=== PATIENT | male | born 1960 | race Caucasian/White ===

== ENCOUNTER → 2017-10-28 09:12 | Outpatient (CLI) | payer MEDICARE, SELFPAY ==
--- NOTE | 2017-10-28 10:00 | MRI_ITS ---
STUDY: MRI BRAIN WITH AND WITHOUT CONTRAST (ATTENTION INTERNAL AUDITORY CANALS - I.A.C.'s) REASON FOR EXAM: Male, 57 years old. Hearing asymmetry.Left ear hearing loss and sound of crickets x 6 months. History of seizures. TECHNIQUE: Standardized multiplanar fat and water weighted pulse sequences were obtained. 7 ml of Gadavist contrast material was administered intravenously for the contrast portion of the examination. COMPARISON: None. FINDINGS: Normal bilateral temporal bones. Normal bilateral internal auditory canals. There is no demonstrated intracanalicular or cisternal vestibular schwannoma (acoustic neuroma). There is no enhancement of the bilateral VIIth or VIIIth cranial nerves. Normal bilateral cochlea, vestibules and semicircular canals. There is mild cerebral atrophy with widening of the extra-axial spaces and ventricular dilatation. Normal white matter tracts of the supratentorial brain. Normal bilateral basal ganglia. Normal thalami. Normal flow voids within the major intracranial circulation suggesting patency by spin echo criteria. Normal venous enhancement. There is no enhancing intra-axial or extra-axial abnormality. There is no extra-axial fluid accumulation. Normal sella turcica, pituitary gland, infundibular stalk, optic chiasm and hypothalamus. Normal tectal plate and pineal gland. There is a blush of enhancement involving the inferior josh with minimal increased FLAIR signal. Normal cerebellum. Normal basal cisterns. No demonstrated orbital abnormality, within the constraints of a routine brain study. Normal visualized paranasal sinuses. Normal calvarium and skull base. Normal visualized soft tissue structures. Normal visualized upper cervical spine. Enhancement of the josh. Differential considerations are cavernous angioma and low-grade neoplastic disease. Follow-up in 3 months can be obtained. MRI/Brain W/WO Contrast IMPRESSION: There is no demonstrated intracanalicular or cisternal vestibular schwannoma (acoustic neuroma). Enhancement of the josh. Differential considerations are cavernous angioma, demyelination and low-grade neoplastic disease. Follow-up in 3 months can be obtained. Electronically Signed: Vicky Curry MD at 15:53 EST Tel , Service support ,
== END ==
PROVIDERS: Family Provider Family Medicine; PCP Family Medicine; Visit Provider Otolaryngology
DX: H90.3 Sensorineural hearing loss, bilateral (principal); H61.22 Impacted cerumen, left ear
CPT/HCPCS: 70553; A9585

== ENCOUNTER → 2017-12-30 17:26 | Outpatient (CLI) | payer MEDICARE, SELFPAY ==
[2017-12-30 18:10] LABS: ALB/GLOB Ratio 1.6 RATIO (0.9-2.4); AST(SGOT) 7 U/L (15-37); Alanine Aminotransfer ALT/SGPT 25 U/L (16-61); Albumin, Serum 4.1 g/dL (3.2-5.0); Alkaline Phosphatase 67 U/L (45-117); Anion Gap 5 (5-15); BUN 23 mg/dL (7-18); Calcium,Total 8.9 mg/dL (8.5-10.1); Chloride 98 mmol/L (98-107); Creatinine, Serum 1.28 mg/dL (0.70-1.30); EST Glomerular Filtration Rate 61 mL/min (>60); Est Glom Filt Rate - Afr Amer 74 mL/min (>60); Globulin 2.6 g/dL (2.2-4.2); Glucose 363 mg/dL (74-106); Potassium 4.8 mmol/L (3.5-5.1); Protein, Total 6.7 g/dL (6.4-8.2); Sodium Level 136 mmol/L (136-145)
[2017-12-30 18:18] LABS: Hemoglobin A1c 11.7 % (4.2-6.3)
== END ==
PROVIDERS: Family Provider Family Medicine; PCP Family Medicine; Visit Provider Nurse Practitioner
DX: E10.49 Type 1 diabetes mellitus with other diabetic neurological complication (principal); E10.65 Type 1 diabetes mellitus with hyperglycemia
CPT/HCPCS: 80053; 83036

== ENCOUNTER → 2018-03-03 13:16 | Outpatient (CLI) | payer MEDICARE, SELFPAY ==
--- NOTE | 2018-03-03 13:26 | MRI_ITS ---
STUDY: MRI BRAIN WITH AND WITHOUT CONTRAST REASON FOR EXAM: Male, 57 years old. Abnormal enhancement of the josh, persistent dizziness and imbalance TECHNIQUE: Standardized multiplanar fat and water weighted pulse sequences were obtained. 8 ml of Gadavist contrast material was administered intravenously for the contrast portion of the examination. COMPARISON: None. FINDINGS: Stable cortical atrophy. Normal white matter tracts of the supratentorial brain. Normal bilateral basal ganglia. Normal thalami. There is no extra-axial fluid accumulation. Normal flow voids within the major intracranial circulation suggesting patency by spin echo criteria. Normal venous enhancement. There is no enhancing intra-axial or extra-axial abnormality. Normal sella turcica, pituitary gland, infundibular stalk, optic chiasm and hypothalamus. Normal tectal plate and pineal gland. Once again, a faint region of postcontrast enhancement is noted in the ventral josh, measuring 12 mm anteroposterior by 9 mm transverse. This finding is unchanged compared to previous study. Of note, it is not associated with restricted diffusion, hemorrhage or mass effect. This region is faintly T2 hyperintense. 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 Stable cerebellar atrophy. Normal basal cisterns. Normal bilateral temporal bones. Normal bilateral internal auditory canals. No demonstrated orbital abnormality, within the constraints of a routine brain study. Normal visualized paranasal sinuses. Mild bilateral mastoid sinus disease. Normal visualized soft tissue structures. Normal visualized upper cervical spine. MRI/Brain W/WO Contrast IMPRESSION: Stable faint region of enhancement in the ventral josh. 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 No new intra-axial lesions are seen. Electronically Signed: [place] MD at 1:57 EDT Tel , Service support ,
== END ==
PROVIDERS: Family Provider Family Medicine; PCP Family Medicine; Visit Provider Nurse Practitioner Acute Care
DX: D49.9 Neoplasm of unspecified behavior of unspecified site (principal)
CPT/HCPCS: 70553; A9585

== ENCOUNTER → 2018-06-01 16:41 | Outpatient (CLI) | payer MEDICARE, SELFPAY ==
[2018-06-01 18:00] LABS: Hemoglobin A1c 10.2 % (4.2-6.3)
[2018-06-01 18:32] LABS: Microalbumin,Random Urine 37.4 mg/L (NO RANGE EST.); Microalbumin:Creatinine Ratio 61.9 mg/g CRE (<30 mg/g CRE)
[2018-06-01 20:40] LABS: ALB/GLOB Ratio 1.4 RATIO (0.9-2.4); AST(SGOT) 14 U/L (15-37); Alanine Aminotransfer ALT/SGPT 39 U/L (16-61); Albumin, Serum 3.9 g/dL (3.2-5.0); Alkaline Phosphatase 127 U/L (45-117); Anion Gap 11 (5-15); BUN 28 mg/dL (7-18); BUN/Creat Ratio 20.9 RATIO (10-20); Calcium,Total 8.9 mg/dL (8.5-10.1); Chloride 95 mmol/L (98-107); Creatinine, Serum 1.34 mg/dL (0.70-1.30); EST Glomerular Filtration Rate 58 mL/min (>60); Est Glom Filt Rate - Afr Amer 70 mL/min (>60); Globulin 2.8 g/dL (2.2-4.2); Glucose 547 mg/dL (74-106); Potassium 4.9 mmol/L (3.5-5.1); Protein, Total 6.7 g/dL (6.4-8.2); Sodium Level 136 mmol/L (136-145)
== END ==
PROVIDERS: Visit Provider Nurse Practitioner
DX: E10.65 Type 1 diabetes mellitus with hyperglycemia (principal); E10.49 Type 1 diabetes mellitus with other diabetic neurological complication
CPT/HCPCS: 36415; 80053; 82043; 82570; 83036

== ENCOUNTER → 2018-06-12 15:54 | Outpatient (CLI) | payer MEDICARE, SELFPAY ==
[2018-06-12 17:00] LABS: Hematocrit 37.2 % (40-54); Hemoglobin 12.8 g/dl (13.0-16.5); Mean Corp Hgb Conc 34.4 g/gl (32-36); Mean Corpuscular Hgb 31.4 pg (27.0-32.0); Mean Corpuscular Volume 91.2 fL (80-94); Mean Platelet Vol. 10.7 fl (6.2-12.0); Platelet Count 164 K/mm3 (150-450); RBC Distribution Width SD 39.2 fl (35.1-43.9); Red Blood Count 4.08 M/mm3 (4.6-6.2); White Blood Count 5.3 K/mm3 (4.4-11.0)
[2018-06-12 17:01] LABS: Scan Indicated on CBC? Y/N NO
[2018-06-12 17:45] LABS: Vitamin B12 632 pg/mL (211-911)
[2018-06-12 17:46] LABS: Valproic Acid (Depakene) Level 78 ug/mL (50-100)
[2018-06-12 18:04] LABS: ALB/GLOB Ratio 1.5 RATIO (0.9-2.4); AST(SGOT) 15 U/L (15-37); Alanine Aminotransfer ALT/SGPT 27 U/L (16-61); Albumin, Serum 3.8 g/dL (3.2-5.0); Alkaline Phosphatase 101 U/L (45-117); Anion Gap 8 (5-15); BUN 25 mg/dL (7-18); BUN/Creat Ratio 25.4 RATIO (10-20); Calcium,Total 8.9 mg/dL (8.5-10.1); Chloride 99 mmol/L (98-107); Creatinine, Serum 0.99 mg/dL (0.70-1.30); EST Glomerular Filtration Rate 83 mL/min (>60); Est Glom Filt Rate - Afr Amer 100 mL/min (>60); Free T3 2.4 pg/mL (2.18-3.98); Globulin 2.5 g/dL (2.2-4.2); Glucose 269 mg/dL (74-106); Magnesium 2.3 mg/dL (1.6-2.6); Phosphorus 3.5 mg/dL (2.5-4.9); Potassium 4.2 mmol/L (3.5-5.1); Protein, Total 6.3 g/dL (6.4-8.2); Sodium Level 140 mmol/L (136-145); T4 Free Direct 0.62 ng/dL (0.76-1.46); Thyroid Stim Hormone (TSH) 1.48 uIU/mL (0.358-3.74)
[2018-06-16 10:58] LABS: Lamotrigine (Lamictal) Level 2.4 ug/mL (2.0-20.0)
== END ==
PROVIDERS: Visit Provider Nurse Practitioner Acute Care
DX: R56.9 Unspecified convulsions (principal)
CPT/HCPCS: 36415; 80053; 80164; 82542; 82607; 83735; 84100; 84439; 84443; 84481; 85027

== ENCOUNTER → 2018-09-07 07:43 | Outpatient (CLI) | payer MEDICARE, SELFPAY ==
[2018-06-01 15:24] VITALS: BMI 26.3
[2018-09-07 09:40] LABS: Cholesterol 246 mg/dL (200); High Density Lipoprotein 34 mg/dL; Triglycerides 499 mg/dL
--- OUTSIDE RECORDS SUMMARY | 2018-12-09 17:14 | XMS RPT_ITS ---
:1960 Author Organization OHIP Support Name Relationship Address Phone SAILAJA BAXTER Unavailable [address] + [place] [address] D Unavailable Unavailable Unavailable SAILAJA BAXTER Unavailable [address] + [place] [address] D Unavailable Unavailable Unavailable SAILAJA BAXTER Unavailable Unavailable + KATHYA BLAND Unavailable Unavailable Unavailable SAILAJA BAXTER Unavailable [address] + [place] [address] D Unavailable Unavailable Unavailable SAILAJA BAXTER Unavailable [address] + [place] [address] D Unavailable Unavailable Unavailable SAILAJA BAXTER Unavailable [address] + [place] [address] D Unavailable Unavailable Unavailable SAILAJA BAXTER Unavailable Unavailable + OMARI PARSON Unavailable Unavailable Unavailable SAILAJA BAXTER Unavailable Unavailable + OMARI PARSON Unavailable Unavailable Unavailable SAILAJA BAXTER Unavailable [address] + [place] [address] D Unavailable Unavailable Unavailable SAILAJA BAXTER Unavailable [address] + [place] [address] D Unavailable Unavailable Unavailable SAILAJA BAXTER Unavailable Unavailable + CECILIA VERDUZCODA Unavailable Unavailable + SAILAJA BAXTER Unavailable Unavailable + SAILAJA BAXTER Unavailable Unavailable + SAILAJA BAXTER Unavailable Unavailable + SAILAJA BAXTER Unavailable [address] + [place] [address] D Unavailable Unavailable Unavailable COOK, SAILAJA Unavailable [address] + [place] [address] D Unavailable Unavailable Unavailable SAILAJA BAXTER Unavailable [address] + [place] [address] D Unavailable Unavailable Unavailable Care Team Providers Name Role Phone Yaneli Tutu Attending Unavailable Tutu [place] Referring Unavailable Kontak, Rodolfo Primary Care Unavailable Lisa Cobos [employer]INT BU[employer]ER[employer]C Attending Unavailable Kontak, Rodolfo Referring Unavailable ShoLisa matias [employer] BU[employer]C Attending Unavailable Kontak, Rodolfo Primary Care Unavailable ShoLisa matias [employer] Attending Unavailable Kontak, Rodolfo Referring Unavailable Kontak, Rodolfo Primary Care Unavailable ShahbazEden barba [employer] Attending Unavailable ShahbazEden barba [employer] Referring Unavailable Kontak, Rodolfo Primary Care Unavailable ShoLisa matias [employer] Attending Unavailable Kontak, Rodolfo Referring Unavailable Kontak, Rodolfo Primary Care Unavailable Lisa Cobos [employer] Attending Unavailable Lisa Cobos [employer] Referring Unavailable Primay Care Physicia, No Primary Care Unavailable ShahbazEden barba [employer] Attending Unavailable ShahbazEden barba [employer] Referring Unavailable Primay Care Physicia, No Primary Care Unavailable Lisa Cobos [employer] Attending Unavailable Lisa Cobos [employer] Referring Unavailable Primay Care Physicia, No Primary Care Unavailable ShoLisa matias [employer] Attending Unavailable Primay Care Physicia, No Referring Unavailable PROVIDER, UNKNOWN Admitting Unavailable PROVIDER, UNKNOWN Attending Unavailable BABIUCH, ANA Attending Unavailable BABIUCH, ANA Referring Unavailable DEASY, JEANNINE F Attending Unavailable BABIUCH, ANA Referring Unavailable TEJADA, SAUNDRA K Attending Unavailable DEASY, JEANNINE F Attending Unavailable TEJADA, SAUNDRA K Attending Unavailable TEJADA, SAUNDRA K Referring Unavailable DEASY, JEANNINE F Attending Unavailable DEASY, JEANNINE F Referring Unavailable Dr. Víctor Ladd Admitting Unavailable Dr. Víctor Ladd Attending Unavailable DANETTE LENNON Attending Unavailable SYSTEM, PROVIDER NOT IN Primary Care Unavailable DANETTE LENNON Attending Unavailable SYSTEM, PROVIDER NOT IN Primary Care Unavailable CECE REEVES Attending Unavailable TOÑO AGULIERA Primary Care Unavailable TOÑO AGUILERA Attending Unavailable TOÑO AGUILERA Primary Care Unavailable CECE REEVES Attending Unavailable TOÑO AGUILERA Primary Care Unavailable Rodolfo Pemberton Primary Care Unavailable Anjel Tao Admitting Unavailable Anjel Tao Bin Attending Unavailable Rodolfo Pemberton Primary Care Unavailable Daysi Rivas Attending Unavailable Daysi Rivas A Admitting Unavailable Tejada, Saundra K Admitting Unavailable Tejada, Sanudra K Attending Unavailable Rodolfo Pemberton Primary Care Unavailable UNKNOWN Primary Care Unavailable Melissa, Dr. Melara Attending Unavailable Melissa, Dr. Melara Primary Care Unavailable Bernabe, Dr. Doug Diaz Admitting Unavailable Bernabe, Dr. Doug Diaz Attending Unavailable Bernabe, Dr. Doug Diaz Referring Unavailable UNKNOWN Primary Care Unavailable PROBLEMS PROBLEMS DATE TYPE CONDITION / CODE ATTENDING STATUS SOURCE Unknown E10.49 - Type 1 ChantelLisa matias Active [place] 8 diabetes mellitus [employer] Community with other diabetic Hospital neurological Repository complication / E10.49(ICD-10) Admitting Type 2 diabetes [place] [address] diagnosis mellitus with other [facility] [place] specified Repository complication / E11.69(ICD-10) Admitting [facility] (current) [place] [address] diagnosis use of insulin / [facility] [place] Z79.4(ICD-10) Repository Unknown E10.65 - Type 1 Lisa Cobos Active [place] 8 diabetes mellitus [employer] [facility] Community with hyperglycemia / Hospital E10.65(ICD-10) Repository Unknown E11.9 - Type 2 Lisa Cobos Active [place] 8 diabetes mellitus [employer] [facility] Community without complications Hospital / E11.9(ICD-10) Repository Admitting Local infection of [place] [address] diagnosis the skin and [facility] [place] subcutaneous tissue, Repository unspecified / L08.9(ICD-10) Admitting Polyneuropathy, [place] [address] diagnosis unspecified / [facility] [place] G62.9(ICD-10) Repository Admitting Type 1 diabetes [place] [address] diagnosis mellitus with [facility] [place] diabetic Repository polyneuropathy / E10.42(ICD-10) Admitting Fracture of unsp part OchDr. Bharat morgan [place] 8 diagnosis of unsp clavicle, [facility] init for clos fx / Repository S42.009A(ICD-10) Final Fracture of unsp part Dr. Bharat Torres [place] 8 diagnosis of unsp clavicle, [facility] (discharge) init for clos fx / Repository S42.009A(ICD-10) Admitting Disp fx of shaft of Bernabe, Dr. Doug Nicholson [place] 8 diagnosis left clavicle, init [facility] for clos fx / Repository S42.022A(ICD-10) Final Disp fx of shaft of Kidd, Dr. Doug Nicholson [place] 8 diagnosis left clavicle, init [facility] (discharge) for clos fx / Repository S42.022A(ICD-10) Final Traumatic Dr. Doug Kidd [facility] 8 diagnosis hemopneumothorax, [facility] (discharge) initial encounter / Repository S27.2XXA(ICD-10) Final Multiple fractures of Bernabe, Dr. Camacho [facility] 8 diagnosis ribs, right side, [facility] (discharge) init for clos fx / Repository S22.41XA(ICD-10) Final Contusion of lung, Dr. Doug Kidd [place] 8 diagnosis bilateral, initial [facility] (discharge) encounter / Repository S27.322A(ICD-10) Final Fracture of Bernabe, Dr. Camacho [facility] 8 diagnosis manubrium, initial [facility] (discharge) encounter for closed Repository fracture / S22.21XA(ICD-10) Final Pleural effusion, not Dr. oDug Kidd [facility] 8 diagnosis elsewhere classified [facility] (discharge) / J90(ICD-10) Repository Final Atelectasis / Dr. Doug Kidd [facility] 8 diagnosis J98.11(ICD-10) [facility] (discharge) Repository Final Hypo-osmolality and Dr. Doug Kidd [facility] 8 diagnosis hyponatremia / [facility] (discharge) E87.1(ICD-10) Repository Final Acute posthemorrhagic Dr. Doug Kidd [place] 8 diagnosis anemia / D62(ICD-10) [facility] (discharge) Repository Final Fracture of one rib, Dr. 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 Doug Kidd diagnosis hypertension / [facility] (discharge) I10(ICD-10) Repository Final Type [address] Doug Kidd diagnosis mellitus with [facility] (discharge) hyperglycemia / Repository E11.65(ICD-10) Final long term care pharmacist (current) Dr. Doug Kidd diagnosis use of insulin / [facility] (discharge) Z79.4(ICD-10) Repository Final Disp fx of lateral Dr. Doug Kidd diagnosis end of right [facility] (discharge) clavicle, init for Repository clos fx / S42.031A(ICD-10) Final Disp fx of fifth Dr. Doug Kidd diagnosis metatarsal bone, left [facility] (discharge) foot, init / Repository S92.352A(ICD-10) Final Retention of urine, Dr. Doug Kidd diagnosis unspecified / [facility] (discharge) R33.9(ICD-10) Repository Final Other injury of Dr. 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 Doug Kidd diagnosis / E66.9(ICD-10) [facility] (discharge) Repository Final Body mass index (BMI) Dr. Doug Kidd diagnosis 30.0-30.9, adult / [facility] (discharge) Z68.30(ICD-10) Repository Final Epilepsy, unsp, not Dr. Doug Kidd [facility] 8 diagnosis intractable, without [facility] (discharge) status epilepticus / Repository G40.909(ICD-10) Final Hypomagnesemia / Dr. Doug Kidd [facility] 8 diagnosis E83.42(ICD-10) [facility] (discharge) Repository Final Oth disorders of Dr. Doug Kidd [facility] 8 diagnosis electrolyte and fluid [facility] (discharge) balance, NEC / Repository E87.8(ICD-10) Final Hypoxemia / Dr. Doug Kidd [facility] 8 diagnosis R09.02(ICD-10) [facility] (discharge) Repository Final Hypotension, Dr. Doug Kidd [facility] 8 diagnosis unspecified / [facility] (discharge) I95.9(ICD-10) Repository Final Full incontinence of Dr. Doug Kidd [facility] 8 diagnosis feces / R15.9(ICD-10) [facility] (discharge) Repository Final Unspecified urinary Dr. Doug Kidd [facility] 8 diagnosis incontinence / [facility] (discharge) R32(ICD-10) Repository Active Type 2 diabetes ANA SOTO [facility] 7 mellitus with severe [facility] nonproliferative [place] diabetic retinopathy Repository without macular edema, bilateral / E11.3493(ICD-10) Active long term care pharmacist (current) ANA SOTO [facility] 7 use of insulin / [facility] Z79.4(ICD-10) [place] Repository Active Age-related nuclear ANA SOTO [facility] 8 cataract, bilateral / [facility] H25.13(ICD-10) [place] Repository Unknown E10.9 - Type 1 Lisa Cobos Active [place] 8 diabetes mellitus [employer] [facility] Community without complications Hospital / E10.9(ICD-10) Repository Unknown H90.3 - Sensorineural Warann, Active [place] 8 hearing loss, [facility] bilateral / Hospital H90.3(ICD-10) Repository Unknown H61.22 - Impacted Wartmann, Active [place] [facility] cerumen, left ear / [facility] H61.22(ICD-10) Hospital Repository PROCEDURES PROCEDURES DATE CODE DESCRIPTION STATUS SOURCE 01/28/2018 [id number](ICD10- 6N9X79N Completed [facility] Repository 01/28/2018 [id number](ICD10- 9D5X8GZ Completed [facility] Repository 01/28/2018 [id number](ICD10- 8FVP3KW Completed [facility] Repository 01/22/2018 [id number](ICD10- 8LPV68O Completed [facility] Repository 01/22/2018 [id number](ICD10- 4KG382G Completed [facility] Repository RESULTS RESULTS ENDOCRINOLOGY VISIT Observed: 09/16/2018 Status: F Source: [place] REPORT 2:45 PM [facility] REPOSITORY [facility] [address] [place] [address] [address] [place] [address] OFFICE VISIT Date of Service: 09/10/18 MR#: [id number] Acct: [id number] Name: JAIME BAXTER Rep #: [id number] : 1960 Provider: Lisa Cobos NP Age/Sex: 58/M [place] [facility] [place]: Signed HPI History of present illness Jaime Baxter is a 58 year old male who presents for diabetes type 1 follow up, accompanied by his son. Currently he is taking lantus 37 units in am and 37 units in pm daily and sliding scale meal insulin. He reports today he takes meal insulin rarely; if he does it is when he checks his BG which is 0-1 times daily. Brings his meter which notes BG 300 -550 range. He denies any issues with injections. Has fear of low BG. Reports having taken no meal insulin in weeks. States he forgets or he is away from home. At time of visit: -Pt denies symptoms of hypertensive emergency (CP,SOB,ORTIZ, or blurred vision) and hypotension(dizziness or lightheadedness) -Pt denies symptoms of hypoglycemia ( sweaty, confusion, anxiety, tremor, hunger, palpitations) and hyperglycemia ( polydipsia, polyuria) -Pt denies potential medication adverse effect. Hypoglycemia Aware of hypoglycemia: When awake Able to self treat low BG: Yes Frequent low Blood sugar: No Exam Const General: comfortable, no acute distress Nutritional Appearance: thin Orientation: oriented x3 HENMT Head: normal to inspection, atraumatic Ears: hearing grossly normal bilaterally Nose: no nasal discharge Mouth: oral mucosae normal, moist mucous membranes Eyes General: appearance normal, both eyes and all related structures Conjunctivae: conjunctivae normal Sclera: sclerae normal Neck Neck: normal visual inspection, full ROM Chest healing scar at clavicle left side Chest palpation AND inspection: deferred Resp Effort AND Inspection: normal respiratory effort, able to speak in complete sentences, symmetric chest movement Cardio Rate: regular rate Rhythm: regular rhythm Heart Sounds: S1 normal, S2 normal GI Inspection: normal to inspection Palpation: no guarding Skin General: no rashes or lesions noted Wounds: left clavicle closed Diabetic Foot Inspection: No foot deformity, Yes nail disorder (sl long nails.) Pulses: Did not remove surigcal boot, R dorsalis pedis pulse: normal Son and patient report no open areas as assessed this am Monofilament test: Neuro General: unable to assess gait Speech: speech normal Motor: tremor Extrem General: , normal exam except as noted Psych Appearance: well kempt Mood: congruent mood Affect: normal affect Attitude: cooperative Thought Process: normal Thought Content: normal Judgment: judgment fair Weight and fatigue symptoms: Denies snoring Cardiopulmonary symptoms: Denies chest pain at rest, dyspnea on exertion, lightheadedness or myalgias GI symptoms: Denies constipation, diarrhea, nausea/dyspepsia or vomiting Skin and extremity symptoms: Denies erectile dysfunction Other symptoms: Denies blurry vision or change in vision Type: type 1, insulin-requiring Glucose control symptoms: Reports high fasting glucose and high post-meal glucose Weight and fatigue symptoms: Reports weight loss; denies snoring Cardiopulmonary symptoms: Reports lightheadedness; denies chest pain at rest, dyspnea on exertion or myalgias GI symptoms: Denies constipation, diarrhea, nausea/dyspepsia or vomiting Skin and extremity symptoms: Reports tingling/numbness/burning; denies erectile dysfunction Other symptoms: Reports change in vision; denies blurry vision Pertinent visit history: Denies recent visit to ER, recent hospital admission or recent 911 calls Intake Vital Signs09/10/18 Height 5 ft 7 in 09/10/18 Weight: 163 lb 6 oz 09/10/18 Body Mass Index (BMI) 25.5 09/10/18 Blood Pressure 147/87 H 09/10/18 Blood Pressure Location Lt popliteal 09/10/18 Blood Pressure Position Sitting Intake Visit Reasons: Diabetes 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 Accompanied by: Son Allergies No Known Allergies Allergy (Verified 09/10/18 14:52) Medications Citalopram [Celexa] 10 mg PO DAILY 12/04/15 [History Confirmed 09/10/18] Divalproex Sodium [Depakote ER] 1,000 mg PO QHS 12/04/15 [History Confirmed 09/10/18] Lamotrigine [Lamictal Xr] 25 mg PO BID 12/04/15 [History Confirmed 09/10/18] Lisinopril [Zestril] 40 mg PO DAILY 12/04/15 [History Confirmed 09/10/18] Oxcarbazepine [Trileptal] 600 mg PO BID 12/04/15 [History Confirmed 09/10/18] busPIRone [Buspar] 5 mg PO BID 12/04/15 [History Confirmed 09/10/18] Gabapentin [Neurontin] 100 mg PO TIDCM 01/31/17 [History Confirmed 09/10/18] hydroCHLOROthiazide [Hydrochlorothiazide] 12.5 mg PO DAILY 01/31/17 [History Confirmed 09/10/18] Primidone [Mysoline] 50 mg PO DAILY 03/27/17 [History Confirmed 09/10/18] glucagon (human recombinant) 1 mg injection kit 1 mg IM ONCE 09/10/17 [History Confirmed 09/10/18] insulin aspart U- 100 100 unit/mL subcutaneous pen 40 unit SC TID ml 09/10/17 [History Confirmed 09/10/18] insulin glargine (U-100) 100 unit/mL (3 mL) subcutaneous pen 70 unit SC QHS ml 09/10/17 [History Confirmed 09/10/18] metformin 500 mg tablet 500 mg PO BID 09/10/17 [History Confirmed 09/10/18] Accu-Chek Flores Plus test strips See Dose Instructions .ROUTE .MEDSUPPLY #150 ea NS 12/30/17 [Rx Confirmed 09/10/18] oxycodone 20 mg tablet 20 mg PO ONCE 02/19/18 [History Confirmed 09/10/18] blood-glucose meter See Dose Instructions .ROUTE .MEDSUPPLY #1 ea 09/10/18 [Rx Confirmed 09/10/18] lovastatin 10 mg tablet 10 mg PO QPM #30 tab 09/10/18 [Rx Confirmed 09/10/18] Nurse's Note: blood sugars : low : 215 high : 600+ PFSH Medical History Broken bones (Acute) Broken clavicle (Acute) Broken toe (Acute) Depression (Acute) Epilepsy (Acute) Sleep apnea (Acute) Type 1 diabetes mellitus with retinopathy (Acute) drain tubes in lungs (Acute) HTN (hypertension) (Chronic) Family History Father Diabetes Mother Heart disease Social History Smoking Status: Never smoker second hand exposure: No alcohol intake: current substance use type: does not use ROS Const Constitutional: No anorexia, body ache, chills, fatigue, fever(s), frequent falls, decreased energy, malaise, night sweats, weakness, weight change, sleep problems, abnormal sleep pattern, change in appetite, other, headache(s), snoring or excessive sweating Eyes Eyes: Positive for change in vision; no blurry vision, double vision, discharge, dry eyes, bulging eyes, floaters, visual disturbances, eye pain, light sensitivity, spots in vision, tunnel vision or other ENT ENT: No abnormal hearing, ear pain, ear discharge, ear pressure, hearing loss, tinnitus, dizziness/vertigo, balance problems, nosebleed/epistaxis, nasal congestion, nasal obstruction, nose pain, sinus pressure, sinus pain, nasal discharge, post nasal drip, headache(s), facial pain, dental pain, dry mouth, bad breath, hoarseness, lip swelling, mouth lesions, mouth pain, sore throat, tongue swelling, throat swelling, other, difficulty swallowing or neck pain Resp Respiratory: No cough, change in phlegm color, chest congestion, excessive phlegm production, hemoptysis, pain on inspiration, shortness of breath, pain with cough, snoring, stridor, wheezing or other Cardio Cardiology: Positive for generalized swelling and lightheadedness; no chest pain at rest, chest pain with exertion, leg pain with exertion, excessive sweating, shortness of breath, dyspnea on exertion, irregular heart rhythm, orthopnea, radiating jaw, neck or arm pain, fast heart rate, slow heart rate, palpitations or other Gastro GI: No abdominal pain, belching, bloating, change in bowel habits, change in stool character, coffee ground emesis, constipation, cramping, diarrhea, heartburn, difficulty swallowing, feeling full early, excessive flatus, incontinent of stools, Vomiting blood/hematemesis, blood in stool, loose stools, Black,tarry stools, nausea/dyspepsia, pain with swallowing, vomiting or other Genitourinary Male: No difficulty urinating, burning urination, painful urination, urinary incontinence, urinary frequency, urinary urgency, urinary hesitancy, urinary retention, blood in urine, Frequent nighttime urination/ nocturia, post void dribbling, suprapubic fullness, side pain, sexual problems, genital lesions, genital itching, erectile dysfunction, penile discharge, difficulty with ejaculations, blood in semen, scrotal swelling, testicle lump, testicle pain or other Musc Musculoskeletal: No abnormal walking, joint pain, back pain, deformity, joint swelling, limited range of motion, loss of height, muscle cramps, muscle weakness, decreased muscle mass, body aches, neck pain, numbness, radiating pain into limb, stiffness, tingling or other Skin Skin: No acne, hair loss, change in hair, nail changes, boil, change in skin color, dry skin, redness, excessive hair growth, yellowing of the skin, lesions, itching, rash, skin pain, skin ulcer, sores, skin swelling, wounds or other Breast Breast: No other Neuro Neurology: No frequent falls, weakness, visual disturbances, abnormal hearing, headache(s), abnormal walking, numbness or tingling Psych Psychiatric: No abnormal sleep pattern, No change in appetite Endo Endocrine: No fatigue, other or excessive sweating Aller/Imm Allergy/Immunologic: No lip swelling, tongue swelling, throat swelling, wheezing or itchy eyes Assessment AND Plan 1. DM (diabetes mellitus), type 1, uncontrolled w/neurologic complication E10.49; E10.65 Plan Patient remains non compliant with his insulin regimen. BG readings elevated at 300-500 range. Reports he forgets his insulin when he leaves home. He doesnt think about meal insulin during the day. When son is there he makes sure his father takes his insulin. Discussed with patient the importance of taking his insulin. We have had this conversatation at each appointment. Son does not know what else to do. 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 Has neuropathy but we talked about issues with eyes and kidney's. BP elevated but patient is not sure he has taken his oral medications. Reviewed patient labs with patient. However, not sure patient is being compliant with oral medications either. Patient Instructions Check BG before each meal Take meal insulin for each meal you consume. Discussed healthy diet plan. Be sure to take oral medications as directed. Take insulin pen with you when you leave home. Discussed issues related to temperature control. Medications New: Plan Detail Additional Comments 1. Please schedule follow up in 3 months. 2. Lab work one week before appointment. 3. Discussed importance of regular exercise and recommend starting or continuing a regular exercise program for good health. 4. The patient was encouraged to lose weight for good health 5. The importance of monitoring blood sugar regularly was reviewed. 6. The importance of monitoring the HBA1c level regularly was reviewed. 7. The importance of prper foot care and regularly checking feet to prevent sores and loss of limbs was reviewed. 8. The importance of keeping BP at or below 130/80 to prevent stroke, heart attacks, kidney failure, blindness was reviewed. Spent approximately 30 minutes with patient with over 50% of time spent in discussion and counseling regarding medication adjustment, symptoms and treatment of hypoglycemia, diet adherence, and checking BG before driving. Coding Level of Care Code Off vis,est,level 4 Diagnoses DM (diabetes mellitus), type 1, uncontrolled w/neurologic complication E10.49; E10.65 09/16/18 1445 <Electronically signed by Lisa OCHOA> Date Lisa OCHOA Cosigner Signature: Date (if applicable) CC: LIPID PROFILE Collected: 09/07/2018 Status: F Source: [place] 7:48 AM [facility] REPOSITORY TYPE CODE TESTS RESULT OUT OF RANGE REFERENCE UNITS LAB L501.4900 200 mg/dL High CHOL 246 Result Comment: <200 mg/dL Desirable 200-240 mg/dL Borderline >240 mg/dL High Risk LAB L501.5000 mg/dL High TRIG 499 Result Comment: The drugs N-Acetylcysteine and Metamizole may falsely depress this assay. TRIGLYCERIDE IS GREATER THAN 400 mg/dL. LDL RESULT IS INVALID AND WILL NOT BE REPORTED. Serum Triglycerides Reference Interval Normal <150 mg/dL Borderline high 150 - 199 mg/dL High 200 - 499 mg/dL Very High > or = 500 mg/dL LAB L501.6400 mg/dL Low HDL 34 Result Comment: The drugs N-Acetylcysteine and Metamizole may falsely depress this assay. Reference Range HDL <40 mg/dL Low HDL Cholesterol HDL >or= 60 mg/dL High HDL Cholesterol LAB L501.6500 0-130 mg/dL Test Normal not performed LDL LAB L501.6600 5-40 mg/dL Test Normal not performed VLDL Performed By: #### L500.4100 #### [facility] [address] 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 Patient was being bridged with avastin until he has his cataracts done and then would be a candidate for Panretinal laser photocoagulation. His cataract surgery was cancelled second to elevated blood sugar. Recommend Intravitreal avastin right eye today in preparation for cataract surgery and plan panretinal laser photocoagulation right eye and following cataract surgery when able, will carefully watch for development of neovascularization left eye patient with stable faint, nonfoveal edema left eye. Offered Intravitreal avastin Left eye today versus observation. The patient elects observation. Return to clinic in 1 months for re-evaluation. The documentation recorded by the scribe accurately reflects the service I personally performed and the decisions made by me. I have confirmed and edited as necessary the relevant ophthalmic history, ROS, and the neuro exam findings as obtained by others. I have seen and examined Jaime Baxter. I have discussed the case and the management of this patient's care with the Advertising Traffic Manager, if applicable. I also have reviewed and agree with the assessment and plan as stated above and agree with all of its relevant components. Jeannine Cruz MD September 03, 2018 11:23 AM GLUCOSE POC Collected: 08/20/2018 Status: F Source: MU-ISM 1:08 PM [facility] REPOSITORY TYPE CODE TESTS RESULT OUT OF REFERENCE UNITS RANGE LAB [id number](LO 70-99 mg/dL INC) High Glucose POC 392 Performed By: #### [id number] #### [facility]IS[facility] POC Subsection [address] [place] [address] PROGRESS Observed: 08/10/2018 Status: COMPLETED Source: [place] 8:43 AM [facility] RE[facility]IT[facility] ID: [id number] Author: Saundra Tejada Service: (none) Author Type: Physician Type: Progress Notes Filed: 08/10/2018 9:52 AM Note Text: ASSESSMENT/PLAN: 1. Combined form of age-related cataract, right eye - ICD9: 366.19, ICD10: H25.811 (primary diagnosis) -Patient vision is unable to be corrected with updated refraction and glasses. Patient wishes to have traditional cataract surgery with basic Intraocular lens right eye scheduled on 08-20-2018 at [facility]. Patient wishes to have cataract surgery with the option stated above. Patient understands that an intraocular lens implant does not necessarily replace the need for glasses. Patient understands that it is impossible for the surgeon to inform him/her of every possible complication that may occur. The surgeon has answered all of the patient's questions. Patient understands that if he/she has a mature or dense cataract, pseudoexfoliation cataract, or history of use of Flomax, he/she may require the use of Maluyugin Ring and/or Vision Blue during surgery. Patient understands the risks, benefits, and alternatives to surgery. Continues Systane Complete three times a day both eyes Cataract Presurgical Documentation Cataract: Right eye (OD) Patient reported symptoms: Associated symptoms Positive for: Blurred Vision, difficulty with reading, difficulty with watching television Negative for: Eye Redness, foreign body sensation, eye discharge, flashes, tearing Current Visual Acuity: Right Eye Distance SC 20/200 Left Eye Distance SC 20/40 Glare Testing: Left Eye Medium 20/70 Visual Function: Jaime Baxter states that the decline in vision from the cataract impedes the ability to read as well as other activities of daily living. Jaime Baxter has confirmed that he is no longer able to function adequately on a day-to-day basis because of his current visual condition. Further, it is my medical opinion that the cataract is the primary cause, or at least a significantly contributory cause of his visual dysfunction. With uncomplicated cataract surgery and lens implantation, it is my expectation that his visual function and quality of life will improve, significantly. The risks, benefits, alternatives, personnel and complications of cataract surgery with lens implantation were discussed with Jaime Baxter in detail. he appeared to understand and asked that I proceed with plans for surgery. PHYSICAL EXAM: Vital Signs: Blood pressure 163/97, pulse 85. Respiratory: Normal breath sounds, no wheezing. CARD: Normal heart sounds 1 AND 2, normal sinus rhythm. A complete dilated exam of each eye was performed on 08/06/2018 Current Ophthalmic Meds fluorometholone (FML LIQUID FILM) 0.1 % ophthalmic suspension Use 1 Drop in both eyes once daily. prednisoLONE acetate (PRED FORTE) 1 % ophthalmic suspension Use 1 Drop in the right eye four times daily. ketorolac (ACULAR) 0.5 % ophthalmic solution Use 1 Drop in the right eye four times daily. propylene glycol (SYSTANE COMPLETE) 0.6 % drop Use 1 Drop in both eyes three times daily. 2. Combined forms of age-related cataract, left eye - ICD9: 366.19, ICD10: H25.812 Plan cataract surgery of left eye at a later date. 3. 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 Type 2 diabetes mellitus with right eye affected by proliferative retinopathy without macular edema, with long-term current use of insulin (HCC) - ICD9: 250.50, 362.02, V58.67, ICD10: E11.3591, Z79.4 Please keep your blood sugar under good control to minimize risk of ocular complications from diabetes. Continue care with retina specialist Dr. Cruz as scheduled. 5. Seizure disorder (HCC) - ICD9: 345.90, ICD10: G40.909 Continue to monitor with Piyush Cobos RN MANAGER HRIS / Aditya Wood MD 6. Essential hypertension - ICD9: 401.9, ICD10: I10 Continue to monitor with JANIE Flores CNP, MD I have confirmed and edited as necessary the relevant ophthalmic history, review of systems, surgical history, and ophthalmological examination findings as obtained by the ophthalmic technical staff. I have seen and examined Jaime Baxter. I have discussed the examination findings, diagnosis, and treatment options with Jaime Baxter and/or his family. I have also reviewed and agree with the assessment and plan as stated above and agree with all its relevant components. I gave the patient the opportunity to ask questions about the findings, diagnosis, and treatment options. 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 Advise observation. Right eye shows involuted micah and reduced edema. Advise Intravitreal avastin Right eye. Cataracts Both eyes. Recommend cataract removal. Will plan to add Panretinal laser photocoagulation Right eye following cataract surgery. The documentation recorded by the scribe accurately reflects the service I personally performed and the decisions made by me. I have confirmed and edited as necessary the relevant ophthalmic history, ROS, and the neuro exam findings as obtained by others. I have seen and examined Jaime Baxter. I have discussed the case and the management of this patient's care with the Advertising Traffic Manager, if applicable. I also have reviewed and agree with the assessment and plan as stated above and agree with all of its relevant components. Jeannine Cruz MD August 06, 2018 1:19 PM PROGRESS Observed: 06/22/2018 Status: COMPLETED Source: [place] 9:41 AM [facility] REPOSITORY O ID: [id number] Author: Saundra Tejada Service: (none) Author Type: Physician Type: Progress Notes Filed: 06/22/2018 9:49 AM Note Text: ASSESSMENT/PLAN: 1. Combined form of age-related cataract, right eye - ICD9: 366.19, ICD10: H25.811 (primary diagnosis) 2. Combined forms of age-related cataract, left eye - ICD9: 366.19, ICD10: H25.812 Plan cataract surgery once retina is stabilized and clearance is obtained from Dr. Cruz. Patient to begin Systane Complete - Use 1 Drop into both eyes four times a day. Blood pressure 163/97, pulse 85. - IOL BIOMETRY W/ IOL CALC OU (BOTH EYES) 3. 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 Continue care with Dr. Anthony MD. 4. Type 2 diabetes mellitus with right eye affected by proliferative retinopathy without macular edema, with long-term current use of insulin (HCC) - ICD9: 250.50, 362.02, V58.67, ICD10: E11.3591, Z79.4 Please keep your blood sugar under good control to minimize risk of ocular complications from diabetes. Continue care with Dr. Anthony MD. 5. Seizure disorder (HCC) - ICD9: 345.90, ICD10: G40.[address] Nilay MD / Dr. Israel MD 6. Essential hypertension - ICD9: 401.9, ICD10: I10 Manage care with Dr. Nilay MD. Return to office in 1 month for follow up. Saundra Tejada MD I have confirmed and edited as necessary the relevant ophthalmic history, review of systems, surgical history, and ophthalmological examination findings as obtained by the ophthalmic technical staff. I have seen and examined Jaime Baxter. I have discussed the examination findings, diagnosis, and treatment options with Jaime Baxter and/or his family. I have also reviewed and agree with the assessment and plan as stated above and agree with all its relevant components. I gave the patient the opportunity to ask questions about the findings, diagnosis, and treatment options. PROGRESS Observed: 06/15/2018 Status: COMPLETED Source: [place] 2:15 PM [facility] REPOSITORY [facility] ID: [id number] Author: Juliet Nieto Service: (none) Author Type: Magnetic Tape Winder Type: Progress Notes Filed: 06/15/2018 2:18 PM Note Text: Dr. Pemberton wants patient to be opted out of the care gap registry. Patient Is non complaint. This was discuss at teamlet meeting. Juliet Nieto MA CNPTOUTREACH Observed: 06/15/2018 Status: COMPLETED Source: [place] 12:00 AM [facility] REPOSITORY Patient Outreach (FAMPWS) JAIME BAXTER ([id number]) 1960 M Date Time Provider Department 06/15/18 JULIET NIETO) KYLE During your visit today, we recorded the following information about you: Juliet Nieto MA 06/15/2018 2:[address] Pemberton wants patient to be opted out of the care gap registry. Patient Is non complaint. This was discuss at teamlet meeting. Juliet Nieto MA Allergies As of Date: 06/15/2018 (No Known Allergies) Date Reviewed: 06/04/2018 Reviewed by: Jeannine Cruz - Fully Assessed Reason for Visit: PHMA/Care Gap Outreach [[id number]] Prescriptions as of 06/15/2018 Sig: LISINOPRIL 40 MG TABLET take 1 tablet by mouth once d* INSULIN GLARGINE (U-100) 100 * Take 15 twice a day INSULIN ASPART U-100 100 UNI* Take 1-4 units before meals o* PREGABALIN 100 MG CAPSULE Take 1 capsule by mouth twice* PRIMIDONE 50 MG TABLET Take 50 mg by mouth twice benigno* FREESTYLE LANCETS 28 GAUGE 1 Each every 4 hours. DIVALPROEX 500 MG TABLET,PENG* Take by mouth , 1 tablet in a* HYDROCHLOROTHIAZIDE 12.5 MG C* Take 1 capsule by mouth once * BLOOD-GLUCOSE METER Use as directed. METFORMIN ER 500 MG TABLET,EX* Take 1 tablet by mouth twice * BENZONATATE 100 MG CAPSULE Take 1 capsule by mouth three* Patient not taking: Reported on 01/01/2018 ATORVASTATIN 40 MG TABLET Take 1 tablet by mouth once d* LORAZEPAM 0.5 MG TABLET Take by mouth at bedtime as * CITALOPRAM 10 MG TABLET Take 1 tablet by mouth once d* BUSPIRONE 5 MG TABLET Take 1 tablet by mouth twice * PEN NEEDLE, DIABETIC 31 GAUGE* Use one needle per dose. four* LAMOTRIGINE 25 MG TABLET Take 1 tablet by mouth twice * OXCARBAZEPINE 600 MG TABLET Take 1 tablet by mouth twice * Problem List As Of Date 06/15/2018 Noted Resolved Seizure disorder (HCC) [G40.909] INVALID FOR* Priority: A Uncontrolled type 1 diabetes mellitus (HCC) [E1*INVALID FOR*10/17/2016 More... Depression [F32.9] INVALID FOR* Priority: A Mixed hyperlipidemia [E78.2] INVALID FOR* Priority: A Diabetic retinopathy associated with type 1 yoana*INVALID FOR*07/08/2016 More... Sleep apnea [G47.30] INVALID FOR* Priority: B Type 1 diabetes mellitus (HCC) [E10.9] INVALID FOR*07/08/2016 Type 1 diabetes mellitus with proliferative ret*INVALID FOR*10/17/2016 Other vitreous opacities [H43.399] INVALID FOR* Priority: G Senile cataracts of both eyes [H25.9] INVALID FOR* Priority: G Background diabetic retinopathy(362.01) [E11.32*INVALID FOR*07/08/2016 Type II or unspecified type diabetes mellitus w*INVALID FOR*07/08/2016 Retinal edema [H35.81] INVALID FOR* Priority: G Insulin dependent diabetes mellitus (HCC) [E11.*INVALID FOR*07/08/2016 Uncontrolled type 1 diabetes mellitus with prot* 07/08/2016 Diabetes mellitus type 1, uncontrolled, insulin* 07/08/2016 Uncontrolled type 1 diabetes mellitus with nonp* 07/08/2016 Hyperlipemia, mixed [E78.2] 07/08/2016 Type 1 diabetes mellitus with severe nonprolife*INVALID FOR* Priority: A More... Uncontrolled type 1 diabetes mellitus with diab*INVALID FOR* Priority: A Diabetes mellitus with both eyes affected by se*INVALID FOR* Priority: A Encounter Status:Closed by JULIET NIETO on 06/15/18 CBC-COMPLETE BLOOD CNT Collected: 06/12/2018 Status: F Source: [place] NO DIFF 3:59 PM [facility] REPOSITORY TYPE CODE TESTS RESULT OUT OF RANGE REFERENCE UNITS LAB L100.1000 4.4-11.0 K/mm3 Normal WBC 5.3 LAB L100.1200 4.6-6.2 M/mm3 Low RBC 4.08 LAB L100.1300 13.0-16.5 g/dl Low HGB 12.8 LAB L100.1400 40-54 % Low HCT 37.2 LAB L100.1500 80-94 fL Normal MCV 91.2 LAB L100.1600 27.0-32.0 pg Normal MCH 31.4 LAB L100.1700 32-36 g/gl Normal MCHC 34.4 LAB L100.1810 11.6-14.6 % Normal RDW CV 12.0 LAB L100.1820 35.1-43.9 fl Normal RDW SD 39.2 LAB L100.1900 150-450 K/mm3 Normal PLT 164 LAB L100.2000 6.2-12.0 fl Normal MPV 10.7 Performed By: #### L100.0500 #### [facility] [place], [address] VITAMIN B12 Collected: 06/12/2018 Status: F Source: [place] 3:59 PM [facility] REPOSITORY TYPE CODE TESTS RESULT OUT OF RANGE REFERENCE UNITS LAB L503.0105 211-911 pg/mL Normal Vitamin B12 632 Performed By: #### L503.0105 #### [facility] [address] [place], [place], [address] VALPROIC ACID Collected: 06/12/2018 Status: F Source: [place]SA (DEPAKENE) LEVEL 3:59 PM [facility] REPOSITORY TYPE CODE TESTS RESULT OUT OF RANGE REFERENCE UNITS LAB L501.8100 50-100 ug/mL Normal VALPROIC ACID 78 Performed By: #### L501.8100 #### [facility] [address] [place], [address] COMPREHENSIVE METABOLIC Collected: 06/12/2018 Status: F Source: [place] PROFIL 3:59 PM [facility] REPOSITORY TYPE CODE TESTS RESULT OUT OF RANGE REFERENCE UNITS LAB L501.0100 74-106 mg/dL High GLU 269 Result Comment: Glucose result greater than or equal to 200 mg/dL suggests DIABETES MELLITUS per A.D.A. criteria. Please note revised GLUCOSE reference range effective 2017. LAB L501.1000 7-18 mg/dL High BUN 25 LAB L501.1100 0.70-1.30 mg/dL Normal CREAT,SERUM 0.99 Result Comment: The validity of the calculated GFR AND GFRAA in patients over 70 years has not been determined. Clinical correlation is essential. LAB L501.1110 >60 mL/min Normal EST GFR 83 Result Comment: Non- GFR Calc LAB L501.1115 >60 mL/min Normal EST GFR - AA 100 Result Comment: GFR Calc LAB L501.1300 10-20 RATIO High BUN/CRE 25.4 LAB L501.1500 6.4-8.2 g/dL Low T PROT 6.3 LAB L501.1800 3.2-5.0 g/dL Normal ALB 3.8 LAB L501.1950 2.2-4.2 g/dL Normal GLOB 2.5 LAB L501.2000 0.9-2.4 RATIO Normal A/G 1.5 LAB L501.2200 8.5-10.1 mg/dL CA Normal 8.9 LAB L501.4100 15-37 U/L Normal AST 15 LAB L501.4305 45-117 U/L Normal ALK P 101 LAB L501.4405 16-61 U/L Normal ALT 27 LAB L501.4600 0.20-1.00 mg/dL T Normal BILI 0.30 LAB L501.5300 136-145 mmol/L NA Normal 140 LAB L501.5600 3.5-5.1 mmol/L K Normal 4.2 LAB L501.5900 98-107 mmol/L CL Normal 99 LAB L501.6100 21.0-32.0 mmol/L High CO2 33.0 LAB L501.6200 5-15 Normal GAP 8 Performed By: #### L500.4050, L501.2300, L501.5200, L501.79411, L501.9520, L506.0400 #### [facility] [address] [place], [place], [address] PHOSPHORUS Collected: 06/12/2018 Status: F Source: [place] 3:59 PM [facility] REPOSITORY TYPE CODE TESTS RESULT OUT OF RANGE REFERENCE UNITS LAB L501.2300 2.5-4.9 mg/dL Normal PHOS 3.5 Performed By: #### L500.4050, L501.2300, L501.5200, L501.52170, L501.9520, L506.0400 #### [facility] [address] [place], [place], [address] MAGNESIUM Collected: 06/12/2018 Status: F Source: [place] 3:59 PM [facility] REPOSITORY TYPE CODE TESTS RESULT OUT OF RANGE REFERENCE UNITS LAB L501.5200 1.6-2.6 mg/dL Normal MG 2.3 Performed By: #### L500.4050, L501.2300, L501.5200, L501.04366, L501.9520, L506.0400 #### [facility] [address] [place], [place], [address] FREE T3 Collected: 06/12/2018 Status: F Source: [place] 3:59 PM [facility] REPOSITORY TYPE CODE TESTS RESULT OUT OF RANGE REFERENCE UNITS LAB L501.64683 2.18-3.98 pg/mL Normal FREE T3 2.4 Performed By: #### L500.4050, L501.2300, L501.5200, L501.28731, L501.9520, L506.0400 #### [facility] [address] [place], [place], [address] THYROID STIM HORMONE Collected: 06/12/2018 Status: F Source: [place] (TSH) 3:59 PM [facility] REPOSITORY TYPE CODE TESTS RESULT OUT OF RANGE REFERENCE UNITS LAB L501.9520 0.358-3.74 uIU/mL Normal TSH 1.48 Performed By: #### L500.4050, L501.2300, L501.5200, L501.75675, L501.9520, L506.0400 #### [facility] [address] [place], [place], [address] T4 FREE DIRECT Collected: 06/12/2018 Status: F Source: [place] 3:59 PM [facility] REPOSITORY TYPE CODE TESTS RESULT OUT OF REFERENCE UNITS RANGE LAB L506.0400 0.76-1.46 ng/dL Low T4 FREE 0.62 DIRECT Performed By: #### L500.4050, L501.2300, L501.5200, L501.87067, L501.9520, L506.0400 #### [facility] [address] [place], [place], [address] LAMOTRIGINE (LAMICTAL) Collected: 06/12/2018 Status: F Source: [place] LEVEL 3:59 PM [facility] REPOSITORY TYPE CODE TESTS RESULT OUT OF RANGE REFERENCE UNITS LAB L3300.4400 2.0-20.0 ug/mL Normal LAMOTRIG 2.4 [id number] Result Comment: Detection Limit = 1.0 Performed at: [address] [id number] Elevator Erector: [place] Blanchard MD, Phone: [phone] Performed By: #### L3300.4400 #### [facility] (refer to report for specific site) refer to report for address and phone number PROGRESS Observed: 06/04/2018 Status: COMPLETED Source: [place] 11:47 AM [facility] REPOSITORY HNO ID: [id number] Author: Jeannine Cruz Service: (none) Author Type: Physician Type: Progress Notes Filed: 06/04/2018 12:39 PM Note Text: (E11.3412, Z79.4) 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 The right eye demonstrates active Proliferative diabetic retinopathy without micah. I discussed with the patient the treatment options of anti vegf on a monthly basis versus laser. Risks, benefits, alternatives explained and the patient elects Intravitreal avastin Right eye today. Cataracts are present in both eyes and the patient would benefit from removal when retinopathy is stabilized. Advise cataract evaluation. Return to clinic in 4 weeks for re-evaluation. The documentation recorded by the scribe accurately reflects the service I personally performed and the decisions made by me. I have confirmed and edited as necessary the relevant ophthalmic history, ROS, and the neuro exam findings as obtained by others. I have seen and examined Jaime Baxter. I have discussed the case and the management of this patient's care with the Advertising Traffic Manager, if applicable. I also have reviewed and agree with the assessment and plan as stated above and agree with all of its relevant components. Jeannine Cruz MD June 04, 2018 11:50 AM ENDOCRINOLOGY VISIT Observed: 06/01/2018 Status: F Source: [place] REPORT 5:11 PM [facility] REPOSITORY [facility] [address] [place] [address] OFFICE VISIT Date of Service: 06/01/18 MR#: [id number] Acct: [id number] Name: JAIME BAXTER Rep #: [id number] : 1960 Provider: Lisa Cobos NP Age/Sex: 58/M Location: [facility] Status: Signed HPI History of present illness Jaime Baxter is a 57 year old male who presents for diabetes type 1 follow up, accompanied by his son. Currently he is taking lantus 22 units in am and 25 units in pm daily and sliding scale meal insulin. He reports today he takes meal insulin when he checks his BG which is 0-1 times daily. Brings his meter which notes BG 169-550 He denies any issues with injections. Has fear of low BG. At time of visit: -Pt denies symptoms of hypertensive emergency (CP,SOB,ORTIZ, or blurred vision) and hypotension(dizziness or lightheadedness) -Pt denies symptoms of hypoglycemia ( sweaty, confusion, anxiety, tremor, hunger, palpitations) and hyperglycemia ( polydipsia, polyuria) -Pt denies potential medication adverse effect. Hypoglycemia Aware of hypoglycemia: When awake Able to self treat low BG: Yes Frequent low Blood sugar: No Exam Const General: comfortable, no acute distress Nutritional Appearance: thin Orientation: oriented x3 HENMT Head: normal to inspection, atraumatic Ears: hearing grossly normal bilaterally Nose: no nasal discharge Mouth: oral mucosae normal, moist mucous membranes Eyes General: appearance normal, both eyes and all related structures Conjunctivae: conjunctivae normal Sclera: sclerae normal Neck Neck: normal visual inspection, full ROM Chest healing scar at clavicle left side Chest palpation AND inspection: deferred Resp Effort AND Inspection: normal respiratory effort, able to speak in complete sentences, symmetric chest movement Cardio Rate: regular rate Rhythm: regular rhythm Heart Sounds: S1 normal, S2 normal GI Inspection: normal to inspection Palpation: no guarding Skin General: no rashes or lesions noted Wounds: left clavicle closed Diabetic Foot Inspection: No foot deformity, Yes nail disorder (sl long nails.) Pulses: Did not remove surigcal boot, R dorsalis pedis pulse: normal Son and patient report no open areas as assessed this am Monofilament test: Neuro General: unable to assess gait Speech: speech normal Motor: tremor Extrem General: , normal exam except as noted Psych Appearance: well kempt Mood: congruent mood Affect: normal affect Attitude: cooperative Thought Process: normal Thought Content: normal Judgment: judgment fair Weight and fatigue symptoms: Denies snoring Cardiopulmonary symptoms: Denies chest pain at rest, dyspnea on exertion, lightheadedness or myalgias GI symptoms: Denies constipation, diarrhea, nausea/dyspepsia or vomiting Skin and extremity symptoms: Denies erectile dysfunction Other symptoms: Denies blurry vision or change in vision Type: type 1, insulin-requiring Glucose control symptoms: Reports high fasting glucose and high post-meal glucose Cardiopulmonary symptoms: Reports myalgias; denies chest pain at rest or dizziness GI symptoms: Denies diarrhea, vomiting, nausea/dyspepsia, constipation or increased hunger Skin and extremity symptoms: Reports tingling/numbness/burning Other symptoms: Denies change in vision or depression Pertinent visit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 2018 5:11PM] Impression: Bilateral clavicular fractures. Multiple bilateral upper rib fractures. Xray Clavicle Complete [Jan 21 2018 5:11PM] Impression: Normal radiographs left forearm and left elbow. Xray Forearm 2 View [Jan 21 2018 5:10PM] Impression: Normal radiographs left forearm and left elbow. Xray Elbow 2 View [Jan 21 2018 5:10PM] Impression: Unremarkable radiographs right foot and bilateral ankles. Xray Ankle 3 View [Jan 21 2018 5:09PM] Impression: Unremarkable radiographsright foot and bilateral ankles. Xray Foot Complete Min 3 View [Jan 21 2018 5:09PM] Impression: 1. Comminuted fracture of the midshaft of the left clavicle, left 1st rib, and the right 2nd and 3rd rib resulting and right-sided pneumothorax, bilateral pulmonary contusions, and left-sided pneumothorax and left-sided pleural effusion. 2. No evidence of acute fracture or subluxation of the spine. 3. Multilevel discogenic degenerative changes of the spine, as described above, with most severe changes in the cervical spine and lateral bridging osteophytes in the thoracolumbar spine. Findings were communicated to and understood by Azul Robin NP at 3:42 p.m. on 01/21/2018. CT L Spine without Contrast [Jan 21 2018 4:07PM] Impression: 1. Comminuted fracture of the midshaft of the left clavicle, left 1st rib, and the right 2nd and 3rd rib resulting and right-sided pneumothorax, bilateral pulmonary contusions, and left-sided pneumothorax and left-sided pleural effusion. 2. No evidence of acute fracture or subluxation of the spine. 3. Multilevel discogenic degenerative changes of the spine, as described above, with most severe changes in the cervical spine and lateral bridging osteophytes in the thoracolumbar spine. Findings were communicated to and understood by Azul Robin NP at 3:42 p.m. on 01/21/2018. CT T Spine without Contrast [Jan 21 2018 4:07PM] Impression: 1. Comminuted fracture of the midshaft of the left clavicle, left 1st rib, and the right 2nd and 3rd rib resulting and right-sided pneumothorax, bilateral pulmonary contusions, and left-sided pneumothorax and left-sided pleural effusion. 2. No evidence of acute fracture or subluxation of the spine. 3. Multilevel discogenic degenerative changes of the spine, as described above, with most severe changes in the cervical spine and lateral bridging osteophytes in the thoracolumbar spine. Findings were communicated to and understood by Azul Robin NP at 3:42 p.m. on 01/21/2018. CT C Spine without Contrast [Jan 21 2018 4:07PM] Impression: CHEST: 1. Multiple bilateral rib fractures, mildly displaced sternal manubrium fracture and comminuted left clavicular midshaft fracture. 2. Small left basilar pneumothorax. 3. Extensive subcutaneous/soft tissue emphysema along the superolateral left chest wall. 4. Small left basilar hemothorax. 5. Bilateral interstitial thickening suggestive of interstitial edema. 6. Small hypodense lesion within the left thyroid lobe. Further evaluation with nonemergent ultrasound is recommended. ABDOMEN-PELVIS: 1. No radiographic evidence of acute traumatic injury within abdomen and pelvis. 2. Small left renal cyst. The critical information above was relayed directly by Dr. Orr by telephone to trauma team on 01/21/2018 at 15:[address] Abdomen and Pelvis with Contrast [Jan 21 2018 4:06PM] Impression: Unremarkable examination. CT Head without Contrast [Jan 21 2018 3:53PM] MEDICATION RECONCILIATION/DISCHARGE MEDS: * Outpatient Medication Status not yet specified Attestation: CRITICAL CARE: ? Is This a Critically Ill Patient no Co-Sign/Attestation: Comments/ Additional Findings: see resident h and p and ed course--pt admitted to the nicu--primary and secondary survey done in the trauma bay Electronic Signatures: Agusto Gutierrez (DO (Resident)) (Signed 21-Jan-2018 19:52) Authored: Time Seen / ED Notes, Triage Vital Signs, Patient History, History Attestation, Lab Results Review, Diagnostic Imaging Results Review, ED Disposition (REQUIRED), Attestation Cesar Saleem) (Signed 26-Jan-2018 11:32) Authored: Attestation Co-Signer: Time Seen / ED Notes, Lab Results Review, Diagnostic Imaging Results Review, Attestation Last Updated: 26-Jan-2018 11:32 by Cesar Saleem) TROPONIN-POCT Collected: 01/21/2018 Status: F Source: [place] 2:42 [facility] REPOSITORY TYPE CODE TESTS RESULT OUT OF REFERENCE UNITS RANGE LAB TROPP(LOINC 0.00 - 0.06 ng/mL ) TROPONIN I <0.04 Result Comment: LESS THAN 0.04 NG/ML: NEGATIVE REPEAT TESTING IN FOUR TO SIX HOURS IF CLINICALLY INDICATED. 0.04 - 0.5 NG/ML: CONSISTENT WITH POSSIBLE CARDIAC DAMAGE AND POSSIBLE INCREASED CLINICAL RISK. SERIAL MEASUREMENTS MAY HELP ASSESS EXTENT OF MYOCARDIAL DAMAGE. >0.5 NG/ML: CONSISTENT WITH CARDIAC DAMAGE, INCREASED CLINICAL RISK AND MYOCARDIAL INFARCTION. SERIAL MEASUREMENTS MAY HELP ASSESS EXTENT OF MYOCARDIAL DAMAGE. . Note: Troponin I testing is performed using different testing methodology at [facility] than at other [facility]. Direct result comparisons should only be made within the same method. Performed By: #### PTROP #### [facility] [address] [place] [address] VENOUS FULL PANEL Collected: 01/21/2018 Status: F Source: [place] 2:41 PM [facility] REPOSITORY Order Comment: CRIT GLUN CALLED RB TO NATALYA ROBIN, 01/21/2018 15:15 TYPE CODE TESTS RESULT OUT OF REFERENCE UNITS RANGE LAB PHVEN(LOIN 7.33 - 7.43 C) pH Low 7.28 LAB PCO2V(LOIN 41 - 51 mmHg C) PCO2 High 69 LAB PO2V(LOINC 35 - 45 mmHg ) PO2 Low 24 LAB TEMP(LOINC degrees C ) PATIENT TEMPERATURE 37.0 Result Comment: NOTE: PATIENT RESULTS ARE NOT CORRECTED FOR TEMPERATURE. LAB SO2%V(LOINC) 45 - 75 % Low SO2 42 LAB HCTN(LOINC) 41.0 - % Low 52.0 HCT 29.0 LAB SODN(LOINC) 136 - 145 mmol/L Low SODIUM 130 LAB POTN(LOINC) 3.5 - 5.3 mmol/L POTASSIUM 4.9 LAB CHLN(LOINC) 98 - 107 mmol/L CHLORIDE 101 LAB IONCA(LOINC) 1.10 - mmol/L 1.33 CALCIUM,IONIZED 1.17 LAB GLUN(LOINC) 74 - 99 mg/dL High GLUCOSE alert 489 Result Comment: CRIT GLUN CALLED RB TO NATALYA ROBIN, 01/21/2018 15:15 LAB LACTN(LOINC) 0.4 - 2.0 mmol/L LACTATE 1.7 LAB BSEXB(LOINC) -2.0 - mmol/L 3.0 BASE High EXCESS-BLOOD 4.1 LAB BICVN(LOINC) 22.0 - mmol/L 26.0 BICARB, High CALCULATED 32.4 LAB HGBNC(LOINC) 13.5 - g/dL 17.5 Low HGB,CALCULATED 9.9 LAB ANGPN(LOINC) 10 - 25 mmol/L ANION Low GAP 2 Performed By: #### VFPA3 #### [facility] [address] [place] [address] COOX PANEL,VENOUS Collected: 01/21/2018 Status: F Source: [place] [address]:[id number] [place] [address] REPOSITORY TYPE CODE TESTS RESULT OUT OF RANGE REFERENCE UNITS LAB COHGV(LOINC % ) Abnormal CO 2.0 HGB Result Comment: REF VALUES NONSMOKERS 0.5-1.5% SMOKERS 0.5-10.0% LAB METCV(LOINC) 0.0 - 1.5 % MET HGB 0.4 Performed By: #### COOXV #### [facility] [address] [place] [address] CBC Collected: 01/21/2018 Status: F Source: [place] 2:30 [facility] REPOSITORY TYPE CODE TESTS RESULT OUT OF REFERENCE UNITS RANGE LAB WBCR(LOINC 4.4 - 11.3 x10E9/L ) WBC 6.8 LAB NRBC(LOINC 0.0-0.0 /100 WBC ) NUCLEATED RBC 0.0 LAB RBCCT(LOIN 4.50 - 5.90 x10E12/L C) Low RBC 3.40 LAB HGB(LOINC) 13.5 - 17.5 g/dL Low HGB 10.7 LAB HCT(LOINC) 41.0 - 52.0 % Low HCT 29.6 LAB MCV(LOINC) 80 - 100 fL MCV 87 LAB MCHC2(LOIN 32.0 - 36.0 g/dL C) MCHC High 36.1 LAB PLTCT(LOIN 150 - 450 x10E9/L C) Low PLT 141 LAB RDWCV(LOIN 11.5 - 14.5 % C) RDW-CV 11.7 Performed By: #### CBC #### [facility] [address] [place] [address] DRUG SCREEN, BLOOD Collected: 01/21/2018 Status: F Source: [place] 2:[address] [place] [address] REPOSITORY TYPE CODE TESTS RESULT OUT OF REFERENCE UNITS RANGE LAB ACETT(LOIN >5.0 POSITIVE mg/L C) ACETAMINOPHEN <10.0 LAB BARBT(LOIN C) SERUM BARBITURATES NEGATIVE LAB PHEYT(LOIN >5.0 POSITIVE ug/mL C) PHENYTOIN <2.5 LAB THEOT(LOIN >5.0 POSITIVE ug/mL C) THEOPHYLLINE <2.5 LAB TRICT(LOIN C) TRICYCLICS, SERUM NEGATIVE LAB SALT(LOINC >2 POSITIVE mg/dL ) SALICYLATE <3 LAB ALCT(LOINC mg/dL ) ALCOHOL <10 Result Comment: FOR MEDICAL USE ONLY. REF VALUES < 10 Performed By: #### DRUGB #### [facility] [address] [place] [address] BASIC METABOLIC PANEL Collected: 01/21/2018 Status: C Source: [place] 2:30 PM [facility] REPOSITORY Order Comment: CRIT GLU CALLED RB TO NATALYA ROBIN, 01/21/2018 15:15 TYPE CODE TESTS RESULT OUT OF REFERENCE UNITS RANGE LAB GLU(LOINC) 74 - 99 mg/dL High alert GLUCOSE 494 Result Comment: CRIT GLU CALLED RB TO NATALYA ROBIN, 01/21/2018 15:15 LAB SOD(LOINC) 136 - 145 mmol/L SODIUM Low 133 LAB K(LOINC) 3.5 - 5.3 mmol/L POTASSIUM 5.2 Result Comment: MILD HEMOLYSIS DETECTED. The result may be falsely elevated due to hemolysis or other interferents. Clinical correlation is recommended. Repeat testing may be considered. LAB CHLOR(LOINC) 98 - 107 mmol/L CHLORIDE Low 96 LAB BIC(LOINC) 21 - 32 mmol/L BICARBONATE 31 LAB ANGAP(LOINC) 10 - 20 mmol/L ANION GAP 11 LAB UREA(LOINC) 6 - 23 mg/dL UREA High NITROGEN 24 LAB CREA(LOINC) 0.50 - mg/dL 1.30 CREATININE 1.14 LAB GFRFN(LOINC) >60 mL/min/1.73m 2 GFR-NON AM. >60 Result Comment: This is a corrected result. Previous value was 57, verified at 01/21/2018 15:12 LAB GFRAA(LOINC) >60 mL/min/1.73m2 GFR- AM. >60 Result Comment: CALCULATIONS OF ESTIMATED GFR ARE PERFORMED USING THE MDRD STUDY EQUATION FOR THE IDMS-TRACEABLE CREATININE METHODS. CLIN CHEM 2007;53:766-72 This is a corrected result. Previous value was 69, verified at 01/21/2018 15:12 LAB CA(LOINC) 8.6 - 10.6 mg/dL Low CALCIUM 8.4 Performed By: #### BMP #### [facility] [address] [place] [address] CREATINE KINASE Collected: 01/21/2018 Status: F Source: [place] 2:30 PM [facility] REPOSITORY TYPE CODE TESTS RESULT OUT OF REFERENCE UNITS RANGE LAB CK(LOINC) 0 - 325 U/L High CREATINE 419 KINASE Performed By: #### CK #### [facility] [address] [place] [address] D-DIMER Collected: 01/21/2018 Status: F Source: [place] 2:30 [facility] REPOSITORY TYPE CODE TESTS RESULT OUT OF RANGE REFERENCE UNITS LAB DIMER(LOINC </= 500 ng/mL FEU ) Abnormal 9414 D-DIMER Result Comment: THE D-DIMER ASSAY IS REPORTED IN NG/ML FIBRINOGEN EQUIVALENT UNITS (FEU). THE RESULTS OF THIS ASSAY SHOULD NOT BE USED FOR THE EXCLUSION OF DEEP VEIN THROMBOSIS AND/OR PULMONARY EMBOLISM. Performed By: #### DIMER #### [facility] [address] [place] [address] PT/INR Collected: 01/21/2018 Status: F Source: [place] 2:30 [facility] REPOSITORY TYPE CODE TESTS RESULT OUT OF REFERENCE UNITS RANGE LAB PT(LOINC) 9.8 - 12.7 sec PROTHROMBIN TIME 10.6 LAB INR(LOINC) 0.9 - 1.1 PT, INR 1.0 Performed By: #### PTINR #### [facility] [address] [place] [address] FIBRINOGEN Collected: 01/21/2018 Status: F Source: [place] [address]:30 [facility] REPOSITORY TYPE CODE TESTS RESULT OUT OF REFERENCE UNITS RANGE LAB FIBRN(LOIN 200 - 400 mg/dL C) Low FIBRINOGEN 112 Performed By: #### FIB #### [facility] [address] [place] [address] XR PELVIS 1 OR 2 Observed: 01/21/2018 Status: F Source: [facility] 1:10 PM [facility] REPOSITORY Exam Date/Time: 01/21/2018 13:21 EDT Reason for Exam: Pain, Traumatic Report Pelvis AP HISTORY: Accident. FINDINGS: The iliopubic and ilioischial columns are intact. No fracture is seen in the iliac wings. The hip joints are normal. IMPRESSION: No fracture. FINAL REPORT Dictated: 01/21/2018 1:55 pm Micheal Castro MD Signed (Electronic Signature): 01/21/2018 1:55 pm Signed by: Micheal Castro MD Technologist: TITUS XR CHEST AP PORTABLE Observed: 01/21/2018 Status: F Source: [facility] 1:10 PM [facility] REPOSITORY Exam Date/Time: 01/21/2018 13:21 EDT Reason for Exam: Chest pain Report CHEST AP PORTABLE SUPINE HISTORY: Injury. FINDINGS: Fractures are seen through both the clavicles with the left mid clavicle fracture being comminuted. A fracture is seen in the right posterior fourth rib and in the lateral margin of the right seventh rib. There is subcutaneous emphysema, along the left lateral chest wall. I suspect a fracture of the left anterior first rib. No pneumothorax is seen in the supine position. The cardiac size is normal. No widening of the mediastinum is seen. There is a small apical pleural cap on the right side. IMPRESSION: Right rib fractures involving the fourth rib posteriorly and seventh rib laterally. Suspect fracture left second rib anteriorly. Bilateral fracture clavicles. Left chest wall subcutaneous emphysema. CT scanning of the chest recommended. Findings were discussed with Dr. Daysi Rivas in the emergency department. The patient is being transported to another hospital. FINAL REPORT Dictated: 01/21/2018 2:02 pm Micheal Castro MD Signed (Electronic Signature): 01/21/2018 2:02 pm Signed by: Micheal Castro MD Technologist: TITUS CBC W/ AUTO DIFF Collected: 01/21/2018 Status: F Source: [facility] 1:05 PM [facility] REPOSITORY TYPE CODE TESTS RESULT OUT OF RANGE REFERENCE UNITS LAB [id number](L 3.6-11.0 E3/mcL OINC) Normal WBC 5.9 LAB [id number](L 3.90-6.10 E6/mcL OINC) Low RBC 3.75 LAB [id number](L 13.5-18.0 G/DL OINC) Low Hgb 11.6 LAB [id number](L 42.0-52.0 % OINC) Low Hct 34.2 LAB [id number](L 11.5-14.5 % OINC) Normal RDW 12.5 LAB [id number](L 27.0-31.0 pg OINC) Normal MCH 30.8 LAB [id number](L 33.0-37.0 G/DL OINC) Normal MCHC 33.8 LAB [id number](L 78.0-100.0 fL OINC) Normal MCV 91.2 LAB [id number](L 7.4-11.0 fL OINC) Normal MPV 8.8 LAB [id number](L 130-400 E3/mcL OINC) Normal Platelet 165 Performed By: #### [id number] #### [facility] [place] [address] AUTO DIFF Collected: 01/21/2018 Status: F Source: [facility] 1:05 [facility] REPOSITORY Order Comment: Order Added by Discern Expert. TYPE CODE TESTS RESULT OUT OF RANGE REFERENCE UNITS LAB [id number](L 37.0-75.0 % OINC) Normal Neutro Auto 52.8 LAB [id number](L 20.0-55.0 % OINC) Normal Lymph Auto 39.6 LAB [id number](L 0.0-10.0 % OINC) Normal [place] Auto 6.5 LAB [id number](L 0.0-11.0 % OINC) Normal Eos Auto 0.8 LAB [id number](L 0.0-2.0 % OINC) Normal Basophil Auto 0.3 LAB [id number](L 1.4-6.5 E3/mcL OINC) Normal Neutro 3.1 Absolute LAB [id number](L 1.2-3.4 E3/mcL OINC) Normal Lymph Absolute 2.3 LAB [id number](L 0.0-0.7 E3/mcL OINC) Normal [place] Absolute 0.4 LAB [id number](L 0.0-0.7 E3/mcL OINC) Normal Eos Absolute 0.0 LAB 27523393(L 0.0-0.2 E3/mcL OINC) Normal Basophil 0.0 Absolute Performed By: #### [id number] #### ULISES [facility] [place] [address] AMYLASE Collected: 01/21/2018 Status: F Source: MU-ISM 1:05 [facility] REPOSITORY TYPE CODE TESTS RESULT OUT OF RANGE REFERENCE UNITS LAB [id number](LO 25-125 Int._Unit/L INC) Normal Amylase Lvl 74 Performed By: #### [id number] #### ULISES [employer] [place] [address] HEP FUNC PANEL Collected: 01/21/2018 Status: F Source: MU-ISM 1:05 [facility] REPOSITORY TYPE CODE TESTS RESULT OUT OF RANGE REFERENCE UNITS LAB [id number](L 10-40 Int._Unit/L OINC) High ALT 50 LAB 60075193(L 10-42 Int._Unit/L OINC) High AST 50 LAB 32734728(L 3.2-5.0 G/DL OINC) Normal Albumin Lvl 4.0 LAB 74371548(L 2.0-4.0 G/DL OINC) Normal Globulin 2.1 LAB 16939039(L 1.1-1.9 ratio OINC) Normal A/G Ratio 1.9 LAB [id number](L 42-121 Int._Unit/L OINC) Normal Alk Phos 72 LAB 59914904(L .00-.20 mg/dL OINC) Normal Bili Direct <.10 LAB 59960421(L OINC) Normal Bili Indirect >0.5 Result Comment: No established ranges available for the Indirect Biliruben. LAB 19146094(LOINC) 0.2-1.0 mg/dL Normal Bili Total 0.6 LAB [id number](LOINC) 6.4-8.3 G/DL Low Total Protein 6.1 Performed By: #### [id number] #### ULISES [facility] [address] [place] [address] LIPASE LEVEL Collected: 01/21/2018 Status: F Source: MU-ISM 1:05 [facility] REPOSITORY TYPE CODE TESTS RESULT OUT OF REFERENCE UNITS RANGE LAB [id number](LO 8-57 U/L INC) High Lipase Lvl 59 Performed By: #### [id number] #### ULISES [facility] [address] [place] [address] BMP Collected: 01/21/2018 Status: F Source: MU-ISM 1:05 [facility] REPOSITORY TYPE CODE TESTS RESULT OUT OF RANGE REFERENCE UNITS LAB [id number](L 70-99 mg/dL OINC) Abnormal Alert Glucose Lvl 502 Result Comment: Critical Result GLU: Called to: EVELINA ALLEN at: 13:29:21 by:[facility] Read back by:EVELINA ALLEN LAB [id number](LOINC) 7-18 mg/dL BUN High 25 LAB 7486732(LOINC) 0.6-1.3 mg/dL Normal Creatinine 1.3 LAB 00760563(LOINC) 5.4-30.0 ratio Normal BUN/Creat Ratio 19.2 LAB 15591675(LOINC) 8.4-10.2 mg/dL Calcium Normal Lvl 9.0 LAB 89081846(LOINC) 136-145 mEq/L Low Sodium Lvl 130 LAB 76253084(LOINC) 3.5-5.1 mEq/L Normal Potassium Lvl 5.0 LAB [id number](LOINC) 98-107 mEq/L Low Chloride 89 LAB 97303056(LOINC) 24.0-30.0 mEq/L CO2 High 32.0 Performed By: #### [id number] #### ULISES [facility] [address] [place] [id number] EGFR Collected: 01/21/2018 Status: F Source: MU-ISM 1:05 PM [facility] REPOSITORY Order Comment: Order added by Discern Expert. TYPE CODE TESTS RESULT OUT OF RANGE REFERENCE UNITS LAB [id number](LO mL/min/1.73 INC) m2 Normal eGFR 57 LAB [id number](LO mL/min/1.73 INC) m2 Normal eGFR AA >60 Performed By: #### [id number] #### ULISES [employer] [place] [address] PT Collected: 01/21/2018 Status: F Source: MU-ISM 1:04 [facility] REPOSITORY TYPE CODE TESTS RESULT OUT OF RANGE REFERENCE UNITS LAB [id number](LO 1.0-1.2 INC) Normal INR 1.1 Result Comment: INR Recommended Therapeuptic Ranges: Prophylaxis/treatment of DVT and PE?2.0-3.0 Prevention of systemic embolism?.2.0-3.0 Mechanical prosthetic values?2.5-3.5 CRITICAL VALUES?.>4.0 LAB [id number](LOINC) 11.6-14.6 second(s) Normal 13.3 PT Performed By: #### [id number] #### ULISES Hematology [facility]ated [facility]section [address] [place] [id number] PTT Collected: 01/21/2018 Status: F Source: MU-ISM 1:04 [facility] REPOSITORY TYPE CODE TESTS RESULT OUT OF RANGE REFERENCE UNITS LAB [id number](LO 23.2-36.4 second(s) INC) Low PTT 23.0 Performed By: #### [id number] #### ULISES Hematology [facility]section [address] [place] [address] PTT CONTROL RATIO Collected: 01/21/2018 Status: F Source: MU-ISM 1:04 [facility] REPOSITORY Order Comment: Order added by Discern Expert. TYPE CODE TESTS RESULT OUT OF RANGE REFERENCE UNITS LAB [id number](LO 0.8-1.2 ratio INC) Normal PTT Ratio 0.8 Performed By: #### [id number] #### ULISES Hematology Automated Subsection [facility] [place] [address] LACTIC ACID Collected: 01/21/2018 Status: F Source: MU-ISM 1:04 [facility] REPOSITORY TYPE CODE TESTS RESULT OUT OF REFERENCE UNITS RANGE LAB [id number](LO 0.5-2.2 mmol/L INC) High Lactic Acid 2.6 Lvl Performed By: #### [id number] #### ULISES [facility] [address] [place] [address] TROPONIN-I Collected: 01/21/2018 Status: F Source: MU-ISM 1:04 [facility] REPOSITORY TYPE CODE TESTS RESULT OUT OF RANGE REFERENCE UNITS LAB [id number](LO .00-.03 ng/mL INC) Normal <.01 Troponin-I Performed By: #### [id number] #### ULISES [facility] [place] [address] PROGRESS Observed: 12/31/2017 Status: COMPLETED Source: [place]ETTE 4:43 PM [facility] REPOSITORY HNO ID: [id number] Author: Ana Soto Service: (none) Author Type: Physician Type: Progress Notes Filed: 01/01/2018 10:15 AM Note Text: Admits to blood sugar running regularly in 400-500 levels ASSESSMENT/PLAN: 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 I have confirmed and edited as necessary the relevant ophthalmic history, ROS, and the neuro exam findings as obtained by others. I have seen and examined Jaime Baxter. I have discussed the case and the management of this patient's care with the Resident/Fellow, if applicable. I also have reviewed and agree with the assessment and plan as stated above and agree with all of its relevant components. ENDOCRINOLOGY VISIT Observed: 12/31/2017 Status: F Source: [place] REPORT 3:17 PM [facility] REPOSITORY [facility] [address] [place], [place] [address]. [address] [place] [address] OFFICE VISIT Date of Service: 12/30/17 MR#: [id number] Acct: [id number] Name: JAIME BAXTER Rep #: [id number] : 1960 Provider: Lisa Cobos NP Age/Sex: 57/M [place] [facility] [place] [facility] [place]: Signed HPI History of present illness Jaime Baxter is a 57 year old male who presents for diabetes type 1 follow up, accompanied by his son. Currently he is taking lantus 20 units twice daily and sliding scale meal insulin. He reports today he takes meal insulin when he checks his BG which is 0-1 times daily. Brings his meter which notes BG 300-500. He denies any issues with injections. Since our last visit he denies excessive thirst, increased frequency of urination, chest pain or dyspnea. Follows a varied diet, Is non-compliant with medication . The son has called and we had changed his lantus as well as his sliding scale insulin. Pt states he is taking his amlantus and his breakfast coverage most of the time. Son checks on him after work and pt tells him he will check BG and take his insulin but does not. Pt states he forgets. Has fear of low BG. At time of visit: -Pt denies symptoms of hypertensive emergency (CP,SOB,ORTIZ, or blurred vision) and hypotension(dizziness or lightheadedness) -Pt denies symptoms of hypoglycemia ( sweaty, confusion, anxiety, tremor, hunger, palpitations) and hyperglycemia ( polydipsia, polyuria) -Pt denies potential medication adverse effect. Hypoglycemia Aware of hypoglycemia: When awake Able to self treat low BG: Yes Frequent low Blood sugar: No Has supply of glucagon: Yes Weight and fatigue symptoms: Denies snoring Cardiopulmonary symptoms: Denies chest pain at rest, dyspnea on exertion, lightheadedness or myalgias GI symptoms: Denies constipation, diarrhea, nausea/dyspepsia or vomiting Skin and extremity symptoms: Denies erectile dysfunction Other symptoms: Denies blurry vision or change in vision Exam Const General: comfortable, no acute distress Nutritional Appearance: well nourished Orientation: oriented x3 HENMT Head: normal to inspection, atraumatic Ears: hearing grossly normal bilaterally Nose: no nasal discharge Mouth: oral mucosae normal, moist mucous membranes Eyes General: appearance normal, both eyes and all related structures Conjunctivae: conjunctivae normal Sclera: sclerae normal Neck Neck: normal visual inspection, full ROM Chest Chest palpation AND inspection: deferred Resp Effort AND Inspection: normal respiratory effort, able to speak in complete sentences, symmetric chest movement Cardio Rate: regular rate Rhythm: regular rhythm Heart Sounds: S1 normal, S2 normal GI Inspection: normal to inspection Palpation: no guarding Skin General: no rashes or lesions noted Wounds: no wounds Diabetic Foot Inspection: No foot deformity, Yes nail disorder (sl long nails.) Pulses: L dorsalis pedis pulse: normal, R dorsalis pedis pulse: normal Monofilament test: Left foot: abnormal, Right foot: abnormal Neuro General: unable to assess gait Speech: speech normal Motor: tremor Extrem Brusing of left foot from fall. Able to move, no acute injury General: pedal edema, normal exam except as noted Psych Appearance: well kempt Mood: congruent mood Affect: normal affect Attitude: cooperative Thought Process: normal Thought Content: normal Judgment: judgment fair Weight and fatigue symptoms: Denies snoring Cardiopulmonary symptoms: Denies chest pain at rest, dyspnea on exertion, lightheadedness or myalgias GI symptoms: Denies constipation, diarrhea, nausea/dyspepsia or vomiting Skin and extremity symptoms: Denies erectile dysfunction Other symptoms: Denies blurry vision or change in vision Intake Vital Signs12/30/17 Height 5 ft 8 in 12/30/17 Blood Pressure 89/65 12/30/17 Blood Pressure Location Lt popliteal 12/30/17 Blood Pressure Position Sitting 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 Accompanied by: Son Is patient in pain?: No Allergies No Known Allergies Allergy (Verified 12/30/17 16:05) Medications Citalopram [Celexa] 10 mg PO DAILY 12/04/15 [History Confirmed 12/30/17] Divalproex Sodium [Depakote ER] 1,000 mg PO QHS 12/04/15 [History Confirmed 12/30/17] Lamotrigine [Lamictal Xr] 25 mg PO BID 12/04/15 [History Confirmed 12/30/17] Lisinopril [Zestril] 40 mg PO DAILY 12/04/15 [History Confirmed 12/30/17] Oxcarbazepine [Trileptal] 600 mg PO BID 12/04/15 [History Confirmed 12/30/17] busPIRone [Buspar] 5 mg PO BID 12/04/15 [History Confirmed 12/30/17] Gabapentin [Neurontin] 100 mg PO TIDCM 01/31/17 [History Confirmed 12/30/17] Hydrochlorothiazide 12.5 mg PO DAILY 01/31/17 [History Confirmed 12/30/17] Primidone [Mysoline] 50 mg PO DAILY 03/27/17 [History Confirmed 12/30/17] blood-glucose meter See Dose Instructions .ROUTE .MEDSUPPLY #1 ea 09/10/17 [History Confirmed 12/30/17] glucagon (human recombinant) 1 mg injection kit 1 mg IM ONCE 09/10/17 [History Confirmed 12/30/17] insulin aspart U-100 100 unit/mL subcutaneous pen 40 unit SC TID ml 09/10/17 [History Confirmed 12/30/17] insulin glargine (U-100) 100 unit/mL (3 mL) subcutaneous pen 70 unit SC QHS ml 09/10/17 [History Confirmed 12/30/17] metformin 500 mg tablet 500 mg PO BID 09/10/17 [History Confirmed 12/30/17] Accu-Chek Flores Plus test strips See Dose Instructions .ROUTE .MEDSUPPLY #150 ea NS 12/30/17 [Rx Confirmed 12/30/17] thiamine HCl (vitamin B1) 250 mg tablet 250 mg PO QDAY 12/30/17 [History Confirmed 12/30/17] Nurse's Note: blood sugars : low : 200 high : 500 [facility] Medical History Depression (Acute) Epilepsy (Acute) Sleep apnea (Acute) Type 1 diabetes mellitus with retinopathy (Acute) HTN (hypertension) (Chronic) Family History Father Diabetes Mother Heart disease Social History Smoking Status: Never smoker second hand exposure: No alcohol intake: current substance use type: does not use ROS Const Constitutional: Positive for night sweats; no anorexia, body ache, chills, fatigue, fever(s), frequent falls, decreased energy, malaise, weakness, weight change, sleep problems, abnormal sleep pattern, change in appetite, other, headache(s), snoring or excessive sweating Eyes Eyes: No blurry vision, change in vision, double vision, discharge, dry eyes, bulging eyes, floaters, visual disturbances, eye pain, light sensitivity, spots in vision, tunnel vision or other ENT ENT: No abnormal hearing, ear pain, ear discharge, ear pressure, hearing loss, tinnitus, dizziness/vertigo, balance problems, nosebleed/epistaxis, nasal congestion, nasal obstruction, nose pain, sinus pressure, sinus pain, nasal discharge, post nasal drip, headache(s), facial pain, dental pain, dry mouth, bad breath, hoarseness, lip swelling, mouth lesions, mouth pain, sore throat, tongue swelling, throat swelling, other, difficulty swallowing or neck pain Resp Respiratory: No cough, change in phlegm color, chest congestion, excessive phlegm production, hemoptysis, pain on inspiration, shortness of breath, pain with cough, snoring, stridor, wheezing or other Cardio Cardiology: Positive for generalized swelling; no chest pain at rest, chest pain with exertion, leg pain with exertion, excessive sweating, shortness of breath, dyspnea on exertion, irregular heart rhythm, lightheadedness, orthopnea, radiating jaw, neck or arm pain, fast heart rate, slow heart rate, palpitations or other Gastro GI: No abdominal pain, belching, bloating, change in bowel habits, change in stool character, coffee ground emesis, constipation, cramping, diarrhea, heartburn, difficulty swallowing, feeling full early, excessive flatus, incontinent of stools, Vomiting blood/hematemesis, blood in stool, loose stools, Black,tarry stools, nausea/dyspepsia, pain with swallowing, vomiting or other Genitourinary Male: No difficulty urinating, burning urination, painful urination, urinary incontinence, urinary frequency, urinary urgency, urinary hesitancy, urinary retention, blood in urine, Frequent nighttime urination/ nocturia, post void dribbling, suprapubic fullness, side pain, sexual problems, genital lesions, genital itching, erectile dysfunction, penile discharge, difficulty with ejaculations, blood in semen, scrotal swelling, testicle lump, testicle pain or other Musc Musculoskeletal: Positive for joint pain and other (toes on L foot bruised); no abnormal walking, back pain, deformity, joint swelling, limited range of motion, loss of height, muscle cramps, muscle weakness, decreased muscle mass, body aches, neck pain, numbness, radiating pain into limb, stiffness or tingling Skin Skin: No acne, hair loss, change in hair, nail changes, boil, change in skin color, dry skin, redness, excessive hair growth, yellowing of the skin, lesions, itching, rash, skin pain, skin ulcer, sores, skin swelling, wounds or other Breast Breast: No other Neuro Neurology: No frequent falls, weakness, visual disturbances, abnormal hearing, headache(s), abnormal walking, numbness or tingling Psych Psychiatric: No abnormal sleep pattern, No change in appetite Endo Endocrine: No fatigue, other or excessive sweating Aller/Imm Allergy/Immunologic: No lip swelling, tongue swelling, throat swelling, wheezing or itchy eyes Assessment AND Plan Problems 1. Uncontrolled type 1 diabetes with diabetic neuropathy E10.40 2. Mixed hyperlipidemia E78.2 3. Sleep apnea in adult G47.30 Plan Uncontrolled type 1 diabetes with diabetic neuropathy Reactive depression Plan Increase lantus by 2 additional units each 3-5 days if pt checks BG to be sure he isnt low. As of today lantus dose is 22 units twice daily and meal insulin increased to 5-7 units each meal. CGM placement for 14 days downloaded and reviewed. Average BG 280 with above normal range 100% of time. There are no lows and no signficant drops in BG throughout\24 hour periods. Sleep needs to be more at night and awake more during the day. Has finished physical therapy and needs to be active Orders Orders: Medications Changed: From: blood sugar diagnostic strips (Accu-Chek Flores Plus tesuse to check BG 6 x qd E10.9 t strips) Plan Detail Additional Comments 1. Please schedule follow up in 3 months. 2. Lab work one week before appointment. 3. Discussed importance of regular exercise and recommend starting or continuing a regular exercise program for good health. 4. The patient was encouraged to lose weight for good health 5. The importance of monitoring blood sugar regularly was reviewed. 6. The importance of monitoring the HBA1c level regularly was reviewed. 7. The importance of prper foot care and regularly checking feet to prevent sores and loss of limbs was reviewed. 8. The importance of keeping BP at or below 130/80 to prevent stroke, heart attacks, kidney failure, blindness was reviewed. Spent approximately 45 minutes with patient with over 50% of time spent in discussion and counseling regarding medication adjustment, symptoms and treatment of hypoglycemia, diet adherence, and checking BG before driving. Coding Level of Care Code Off vis,est,level 4 Diagnoses Uncontrolled type 1 diabetes with diabetic neuropathy E10.40 Diabetes mellitus complication detail: with unspecified neuropathy Mixed hyperlipidemia E78.2 Sleep apnea in adult G47.30 Time Spent (min) 45 12/31/17 1517 <Electronically signed by Lisa OCHOA> Date Lisa OCHOA Cosigner Signature: Date (if applicable) CC: COMPREHENSIVE METABOLIC Collected: 12/30/2017 Status: F Source: [place] SIMMONS 5:32 PM [facility] REPOSITORY TYPE CODE TESTS RESULT OUT OF RANGE REFERENCE UNITS LAB L501.0100 74-106 mg/dL High GLU 363 Result Comment: Glucose result greater than or equal to 200 mg/dL suggests DIABETES MELLITUS per A.D.A. criteria. Please note revised GLUCOSE reference range effective 2017. LAB L501.1000 7-18 mg/dL High BUN 23 LAB L501.1100 0.70-1.30 mg/dL Normal CREAT,SERUM 1.28 Result Comment: The validity of the calculated GFR AND GFRAA in patients over 70 years has not been determined. Clinical correlation is essential. LAB L501.1110 >60 mL/min Normal EST GFR 61 Result Comment: Non- GFR Calc LAB L501.1115 >60 mL/min Normal EST GFR - AA 74 Result Comment: GFR Calc LAB L501.1300 10-20 RATIO Normal BUN/CRE 18.0 LAB L501.1500 6.4-8.2 g/dL T Normal PROT 6.7 LAB L501.1800 3.2-5.0 g/dL Normal ALB 4.1 LAB L501.1950 2.2-4.2 g/dL Normal GLOB 2.6 LAB L501.2000 0.9-2.4 RATIO Normal A/G 1.6 LAB L501.2200 8.5-10.1 mg/dL CA Normal 8.9 LAB L501.4100 15-37 U/L Low AST 7 LAB L501.4305 45-117 U/L Normal ALK P 67 LAB L501.4405 16-61 U/L Normal ALT 25 Result Comment: Please note revised ALT reference range effective 2017. LAB L501.4600 0.20-1.00 mg/dL Normal T BILI 0.50 LAB L501.5300 136-145 mmol/L Normal NA 136 LAB L501.5600 3.5-5.1 mmol/L Normal K 4.8 LAB L501.5900 98-107 mmol/L Normal CL 98 LAB L501.6100 21.0-32.0 mmol/L High CO2 33.0 LAB L501.6200 5-15 Normal GAP 5 Performed By: #### L500.4050, L501.9985 #### [facility] [address] [place], [address] HEMOGLOBIN A1C Collected: 12/30/2017 Status: F Source: [place] 5:32 PM [facility] REPOSITORY TYPE CODE TESTS RESULT OUT OF RANGE REFERENCE UNITS LAB L501.9985 4.2-6.3 % High HGB A1C 11.7 Performed By: #### L500.4050, L501.9985 #### [facility] [place], [address] GLUCOSE POC Collected: 12/22/2017 Status: F Source: MU-ISM 4:12 PM [facility] REPOSITORY TYPE CODE TESTS RESULT OUT OF REFERENCE UNITS RANGE LAB [id number](LO 70-99 mg/dL INC) High Glucose POC 207 Performed By: #### [id number] #### ULISES POC Subsection [facility] [place] [address] GLUCOSE POC Collected: 12/22/2017 Status: F Source: MU-ISM 11:24 AM [facility] REPOSITORY TYPE CODE TESTS RESULT OUT OF REFERENCE UNITS RANGE LAB [id number](LO 70-99 mg/dL INC) High Glucose POC 318 Performed By: #### [id number] #### ULISES POC Subsection [facility] [place] [address] GLUCOSE POC Collected: 12/22/2017 Status: F Source: MU-ISM 7:58 AM [facility] REPOSITORY TYPE CODE TESTS RESULT OUT OF REFERENCE UNITS RANGE LAB [id number](LO 70-99 mg/dL INC) High Glucose POC 247 Performed By: #### [id number] #### ULISES POC Subsection [facility] [place] [address] BMP Collected: 12/22/2017 Status: F Source: [place]-ISM 6:13 AM [facility] REPOSITORY TYPE CODE TESTS RESULT OUT OF RANGE REFERENCE UNITS LAB 59252481(L 70-99 mg/dL OINC) High Glucose Lvl 235 LAB 82135144(L 7-18 mg/dL OINC) High BUN 22 LAB 6402798(LO 0.6-1.3 mg/dL INC) Normal Creatinine 0.8 LAB 70440181(L 5.4-30.0 ratio OINC) Normal BUN/Creat Ratio 27.5 LAB 59978698(L 8.4-10.2 mg/dL OINC) Low Calcium Lvl 8.3 LAB 64896030(L 136-145 mEq/L OINC) Sodium Normal Lvl 136 LAB 40125618(L 3.5-5.1 mEq/L OINC) Normal Potassium Lvl 4.2 LAB 75942029(L 98-107 mEq/L OINC) Chloride Normal 104 LAB [id number](L 24.0-30.0 mEq/L OINC) CO2 Normal 29.3 Performed By: #### [id number] #### ULISES [facility] [address] [place] [address] VIT B12 Collected: 12/22/2017 Status: F Source: [place]-ISM 6:13 AM [facility] REPOSITORY TYPE CODE TESTS RESULT OUT OF RANGE REFERENCE UNITS LAB 91276542(LO 180-914 pg/mL INC) Normal Vitamin B12 597 Lvl Performed By: #### [id number] #### ULISES [facility] [address] [place] [address] EGFR Collected: 12/22/2017 Status: F Source: MU-ISM 6:13 AM [facility] REPOSITORY Order Comment: Order added by Discern Expert. TYPE CODE TESTS RESULT OUT OF RANGE REFERENCE UNITS LAB [id number](LO mL/min/1.73 INC) m2 Normal eGFR >60 LAB 95924207(LO mL/min/1.73 INC) m2 Normal eGFR AA >60 Performed By: #### [id number] #### ULISES [facility] [place] [address] CBC W/ AUTO DIFF Collected: 12/22/2017 Status: F Source: MU-ISM 6:13 AM [facility] REPOSITORY TYPE CODE TESTS RESULT OUT OF RANGE REFERENCE UNITS LAB [id number](L 3.6-11.0 E3/mcL OINC) Normal WBC 5.0 LAB 61151532(L 3.90-6.10 E6/mcL OINC) Low RBC 3.80 LAB 21622871(L 13.5-18.0 G/DL OINC) Low Hgb 11.8 LAB 39917809(L 42.0-52.0 % OINC) Low Hct 34.6 LAB 70467796(L 11.5-14.5 % OINC) Normal RDW 12.4 LAB 48512844(L 27.0-31.0 pg OINC) Normal MCH 31.0 LAB 97077181(L 33.0-37.0 G/DL OINC) Normal MCHC 34.1 LAB 25634064(L 78.0-100.0 fL OINC) Normal MCV 90.9 LAB 54188278(L 7.4-11.0 fL OINC) Normal MPV 9.1 LAB 99067564(L 130-400 E3/mcL OINC) Low Platelet 125 Performed By: #### [id number] #### ULISES [facility] [address] [place] [address] MANUAL DIFF Collected: 12/22/2017 Status: F Source: MU-ISM 6:13 AM [facility] REPOSITORY Order Comment: Order Added by Discern Expert. TYPE CODE TESTS RESULT OUT OF RANGE REFERENCE UNITS LAB 57980468(L 37-75 % OINC) Low Segs Man 21 LAB 37003912(L 0-1 OINC) Normal Band Man 1 LAB 42409653(L 14-48 % OINC) High Lymph Man 68 LAB 31696283(L 1-11 % OINC) Normal Monocyte Man 8 LAB 98528269(L 0-5 % OINC) Normal Eos Man 1 LAB 50021105(L 0-1 % OINC) Normal Basophil Man 1 LAB 46919019(L OINC) Normal RBC Morph NORMAL Performed By: #### [id number] #### [facility]ES [facility] [place] [address] ZZPLT MORPH Collected: 12/22/2017 Status: F Source: MU-ISM 6:13 AM [facility] REPOSITORY TYPE CODE TESTS RESULT OUT OF RANGE REFERENCE UNITS LAB 75602494(L OINC) Normal Platelet DECREASED Estimate LAB 97916466(L OINC) Normal Platelet Morph NORMAL Performed By: #### [id number] #### [place] [address] .MANUAL ABS Collected: 12/22/2017 Status: F Source: MU-ISM 6:13 AM [facility] REPOSITORY Order Comment: Order Added by Discern Expert. TYPE CODE TESTS RESULT OUT OF RANGE REFERENCE UNITS LAB [id number](L 1.4-6.5 10x3/ OINC) Low Segs Abs Man 1.0 LAB [id number](L 1.2-3.4 10x3/ OINC) Normal Lymph Abs Man 3.4 LAB [id number](L 0.0-0.7 10x3/ OINC) Normal [place] Abs Man 0.4 LAB [id number](L 0.0-0.5 10x3/ OINC) Normal Eos Abs Man 0.0 LAB [id number](L 0.0-0.2 10x3/ OINC) Normal Basophil Abs 0.0 Man Performed By: #### [id number] #### ULISES [employer] [address] [place] [address] HGBA1C Collected: 12/22/2017 Status: F Source: MU-ISM 6:13 AM [facility] REPOSITORY TYPE CODE TESTS RESULT OUT OF REFERENCE UNITS RANGE LAB [id number]( 4.0-6.3 % LOINC) High Hemoglobin A1c 11.4 Performed By: #### [id number] #### ULISES Chemistry Manual Subsection [address] [place] [address] GLUCOSE POC Collected: 12/21/2017 Status: F Source: MU-ISM 8:56 PM [facility] REPOSITORY TYPE CODE TESTS RESULT OUT OF REFERENCE UNITS RANGE LAB [id number](LO 70-99 mg/dL INC) High Glucose POC 305 Performed By: #### [id number] #### ULISES POC Subsection [address] [place] [address] GLUCOSE POC Collected: 12/21/2017 Status: F Source: MU-ISM 4:30 PM [facility] REPOSITORY TYPE CODE TESTS RESULT OUT OF REFERENCE UNITS RANGE LAB [id number](LO 70-99 mg/dL INC) High Glucose POC 362 Performed By: #### [id number] #### ULISES POC Subsection [address] [place] [address] GLUCOSE POC Collected: 12/21/2017 Status: F Source: MU-ISM 11:27 AM [facility] REPOSITORY TYPE CODE TESTS RESULT OUT OF REFERENCE UNITS RANGE LAB [id number](LO 70-99 mg/dL INC) High Glucose POC 380 Performed By: #### [id number] #### ULISES POC Subsection [address] [place], [place] [id number] GLUCOSE POC Collected: 12/21/2017 Status: F Source: MU-ISM 7:57 AM [facility] REPOSITORY TYPE CODE TESTS RESULT OUT OF REFERENCE UNITS RANGE LAB [id number](LO 70-99 mg/dL INC) High Glucose POC 336 Performed By: #### [id number] #### ULISES POC Subsection [address] [place] [address] TSH Collected: 12/21/2017 Status: F Source: MU-ISM 5:20 AM [facility] REPOSITORY TYPE CODE TESTS RESULT OUT OF RANGE REFERENCE UNITS LAB [id number](LO 0.30-5.60 mIU/m INC) Normal TSH 3.46 Performed By: #### [id number] #### ULISES [employer] [address] [place] [address] GLUCOSE POC Collected: 12/20/2017 Status: F Source: MU-ISM 11:25 PM [facility] REPOSITORY TYPE CODE TESTS RESULT OUT OF REFERENCE UNITS RANGE LAB [id number](LO 70-99 mg/dL INC) High Glucose POC 345 Performed By: #### [id number] #### ULISES POC Subsection [address] [place] [address] PH BLOOD POC Collected: 12/20/2017 Status: F Source: MU-ISM 9:25 PM [facility] REPOSITORY TYPE CODE TESTS RESULT OUT OF RANGE REFERENCE UNITS LAB [id number](LO INC) Normal pH POC 7.44 Performed By: #### [id number] #### ULISES POC Subsection [address] [place] [address] PH BLOOD POC ORDER Collected: 12/20/2017 Status: F Source: MU-ISM 9:18 PM [facility] REPOSITORY TYPE CODE TESTS RESULT OUT OF RANGE REFERENCE UNITS LAB CD:[id number](LOINC) Normal pH Collected Blood POC Order Performed By: #### [id number] #### ULISES POC Subsection [address] [place] [address] XR RIBS W/ PA CHEST Observed: 12/20/2017 Status: F Source: MU-ISM BILATERAL 8:50 PM [facility] REPOSITORY Exam Date/Time: 12/20/2017 21:14 EDT Reason for Exam: Fall Report XR Ribs w/ PA Chest Bilateral 12/20/2017 8:50 PM Indication: Pain, fall Comparison: None IMPRESSION: There are nondisplaced right sixth and seventh rib fractures although there appears to be some callus likely indicating that these are subacute. No acute or displaced left rib fracture. No acute cardiopulmonary process. FINAL REPORT Dictated: 12/20/2017 9:47 pm Costa Yarbrough MD, I Signed (Electronic Signature): 12/20/2017 9:47 pm Signed by: Costa Yarbrough MD, I Technologist: CEC XR FOOT 3+ VIEWS Observed: 12/20/2017 Status: F Source: MU-ISM LEFT 8:50 PM [facility] REPOSITORY Exam Date/Time: 12/20/2017 21:15 EDT Reason for Exam: Fall Report CLINICAL HISTORY: Fell on the left side, pain along the lateral aspect. LEFT FOOT: 12/20/2017. COMPARISON: None. FINDINGS: Four views are provided which demonstrate no definite fractures or dislocations particularly along the lateral aspect. No abnormal soft tissue swelling, calcifications, or radiopaque foreign bodies. The bones appear osteopenic. There are vascular calcifications. IMPRESSION: 1. No acute fractures or dislocations. 2. Osteopenia. FINAL REPORT Dictated: 12/20/2017 9:53 pm Freedom Pittman MD Signed (Electronic Signature): 12/20/2017 9:53 pm Signed by: Freedom Pittman MD Technologist: CEC XR SPINE LUMBOSACRAL 2 Observed: 12/20/2017 Status: F Source: MU-ISM OR 3 VIEWS 8:50 PM [facility] REPOSITORY Exam Date/Time: 12/20/2017 21:14 EDT Reason for Exam: Fall Report PLAIN FILMS OF THE LUMBAR SPINE CLINICAL INDICATION: Fall with low back pain. COMPARISON: None. FINDINGS: Frontal and lateral views of the lumbar spine were obtained to include a cone-down lateral L5-S1 view. For the purposes of this examination, there appear to be five lumbar morphology vertebral segments. The vertebral body heights appear to be maintained. There is no evidence of spondylolisthesis or definite spondylolysis within limitations of absent oblique views. There is overall mild multilevel discogenic disease with loss of disc space height and marginal osteophytic spurring and moderate multilevel facet hypertrophy which is most advanced in the mid to lower lumbar spine approaching the lumbosacral junction. There is left SI joint degenerative change and sclerosis. Right SI joint is normal in appearance. IMPRESSION: 1. Mild to moderate lumbar spondylitic change with overall mild discogenic disease and moderate degenerative joint disease which is most advanced at the lumbosacral junction with evidence of left-sided SI joint degenerative change and sclerosis. Osteopenia. Within limitations of plain radiography, no clearly acute lumbar spine fracture or traumatic malalignment identified. 2. If the patient's clinical pain syndrome is out of proportion to the radiographic findings described, CT or MRI imaging could be useful for further evaluation. 3. Incidentally, there is a very subtle lucency traversing obliquely through the coccyx on the lateral view which could be a mach line artifact or nondisplaced fracture. If there is focal pain in the region of the coccyx, cross-sectional imaging could be useful for further evaluation. FINAL REPORT Dictated: 12/20/2017 10:09 pm Lv Andrews MD Signed (Electronic Signature): 12/20/2017 10:09 pm Signed by: Lv Andrews MD Technologist: CEC CT HEAD OR BRAIN W/O Observed: 12/20/2017 Status: F Source: MU-ISM CONTRAST 8:26 PM [facility] REPOSITORY Exam Date/Time: 12/20/2017 21:07 EDT Reason for Exam: Injury Report TECHNIQUE: CT scan of the brain reconstructed in the axial, coronal, and sagittal plane. Dose reduction techniques were achieved by using automated exposure control and/or adjustment of mA and/or kV according to patient size and/or use of iterative reconstruction technique. HISTORY: Multiple falls. FINDINGS: No evidence of acute intracranial trauma. The ventricles, sulci, and basilar cisterns are normal. Cerebral hemispheres, brainstem, and cerebellar hemispheres are otherwise normal. Osseous structures are intact. IMPRESSION: No evidence of acute intracranial trauma. FINAL REPORT Dictated: 12/20/2017 9:47 pm Imer Downing MD Signed (Electronic Signature): 12/20/2017 9:47 pm Signed by: Imer Downing MD Technologist: [facility] SPINE THORACIC W/O Observed: 12/20/2017 Status: F Source: MU-ISM CONTRAST 8:26 PM [facility] REPOSITORY Exam Date/Time: 12/20/2017 21:08 EDT Reason for Exam: Trauma Report EXAM: CT Spine Thoracic w/o Contrast CLINICAL STATEMENT: Pain after trauma. COMPARISON: None. TECHNIQUE: ?CT examination of the thoracic spine without IV contrast. Coronal and sagittal reformations were performed. ? Dose reduction techniques were achieved by using automated exposure control and/or adjustment of mA and/or kV according to patient size and/or use of iterative reconstruction technique. REPORT: On the reconstructed images there is a mild curvature of the mid and upper thoracic spine with the convexity towards the right. Bone density is mildly decreased. No bony lesions are noted. There is mild prominence of the normal thoracic kyphosis. No compression fractures are noted. The pedicles and facets appear to be unremarkable. The disc spaces are unremarkable. Limited views of the cervical spine show degenerative changes. The axial images were done from the lower cervical spine to the upper lumbar spine. No fractures or bony lesions are noted. No cortical defects are noted. No spinal canal stenosis is noted. No severe neural foraminal narrowing is noted. There are multiple areas of prominent spurring off the vertebral bodies anteriorly and to the right lateral aspect. Limited views of the ribs and paraspinal musculature and prevertebral areas are unremarkable. IMPRESSION: 1. No evidence of compression fracture of the thoracic spine. 2. Mild curvature and degenerative changes as noted. FINAL REPORT Dictated: 12/20/2017 9:53 pm Jaime Jasso DO Signed (Electronic Signature): 12/20/2017 9:53 pm Signed by: Jaime Jasso DO Technologist: AJAY CT SPINE CERVICAL W/O Observed: 12/20/2017 Status: F Source: MU-ISM CONTRAST 8:26 PM [facility] REPOSITORY Exam Date/Time: 12/20/2017 21:07 EDT Reason for Exam: Trauma Report EXAM: CT CERVICAL SPINE WITHOUT CONTRAST INDICATION: Status post fall with neck and lower back pain. COMPARISON: None. TECHNIQUE: CT of the cervical spine without intravenous contrast. Dose reduction techniques were achieved by using automated exposure control and/or adjustment of mA and/or kV according to patient size and/or use of iterative reconstruction technique. FINDINGS: The cervical alignment is intact. No acute cervical spine fracture is identified. The vertebral body heights are intact. No suspicious osseous lesions are identified. The craniocervical junction appears intact. Multilevel degenerative changes are appreciated most severe at the levels of C5 through C7 with loss of disc space height and bulky anterior and posterior osteophytosis. Severe neural foraminal narrowing at the levels of C6 and C7 is noted, left greater than right. Moderate right neural foraminal narrowing is also appreciated at the levels of C5 and C6. Posterior annular calcification suggested at C4-C5. There is relative central canal stenosis noted at the level of C5 and C6 secondary to bulky posterior disc-osteophyte protrusion at this level. This finding is best appreciated on series 6, image 34 and series 2, image 57. There are hypertrophic facet joint degenerative changes noted. The limited visualization of the lung apices demonstrates no acute finding. A focal area of loss of trabeculation at the right lateral aspect of C3 extending into the posterior elements appears to be developmental and does not appear to be acute IMPRESSION: No evidence of acute traumatic cervical spine fracture or malalignment. Multilevel degenerative changes as described above with relative narrowing of the bony spinal canal and neural foraminal stenosis. FINAL REPORT Dictated: 12/21/2017 5:52 am Mo Castillo MD Signed (Electronic Signature): 12/21/2017 5:52 am Signed by: Mo Castillo MD Technologist: AJAY CBC W/ AUTO DIFF Collected: 12/20/2017 Status: F Source: MU-ISM 8:20 PM [facility] REPOSITORY TYPE CODE TESTS RESULT OUT OF RANGE REFERENCE UNITS LAB [id number](L 3.6-11.0 E3/mcL OINC) Normal WBC 4.3 LAB [id number](L 3.90-6.10 E6/mcL OINC) Normal RBC 4.38 LAB [id number](L 13.5-18.0 G/DL OINC) Normal Hgb 13.7 LAB 25440150(L 42.0-52.0 % OINC) Low Hct 39.4 LAB [id number](L 11.5-14.5 % OINC) Normal RDW 12.1 LAB 31147261(L 27.0-31.0 pg OINC) High MCH 31.2 LAB [id number](L 33.0-37.0 G/DL OINC) Normal MCHC 34.6 LAB [id number](L 78.0-100.0 fL OINC) Normal MCV 90.0 LAB [id number](L 7.4-11.0 fL OINC) Normal MPV 9.0 LAB [id number](L 130-400 E3/mcL OINC) Normal Platelet 159 Performed By: #### [id number] #### ULISES [employer] [facility] [place] [address] AUTO DIFF Collected: 12/20/2017 Status: F Source: MU-ISM 8:20 PM [facility] REPOSITORY Order Comment: Order Added by Discern Expert. TYPE CODE TESTS RESULT OUT OF RANGE REFERENCE UNITS LAB [id number](L 37.0-75.0 % OINC) Normal Neutro Auto 44.9 LAB [id number](L 20.0-55.0 % OINC) Normal Lymph Auto 44.6 LAB 69534316(L 0.0-10.0 % OINC) Normal [place] Auto 9.1 LAB 77357528(L 0.0-11.0 % OINC) Normal Eos Auto 1.0 LAB 43907374(L 0.0-2.0 % OINC) Normal Basophil Auto 0.4 LAB [id number](L 1.4-6.5 E3/mcL OINC) Normal Neutro 1.9 Absolute LAB 51496491(L 1.2-3.4 E3/mcL OINC) Normal Lymph Absolute 1.9 LAB [id number](L 0.0-0.7 E3/mcL OINC) Normal [place] Absolute 0.4 LAB 21030793(L 0.0-0.7 E3/mcL OINC) Normal Eos Absolute 0.0 LAB [id number](L 0.0-0.2 E3/mcL OINC) Normal Basophil 0.0 Absolute Performed By: #### [id number] #### [place] [address] BMP Collected: 12/20/2017 Status: F Source: MU-ISM 8:20 PM [facility] REPOSITORY TYPE CODE TESTS RESULT OUT OF RANGE REFERENCE UNITS LAB [id number](L 70-99 mg/dL OINC) Abnormal Alert Glucose Lvl 403 Result Comment: Critical Result GLU: Called to: ALEXANDRE BRENNAN at: 20:33:15 by:BRENDA Read back by:ALEXANDRE BRENNAN LAB [id number](LOINC) 8.4-10.2 mg/dL Normal Calcium Lvl 9.5 LAB 22032761(LOINC) 136-145 mEq/L Low Sodium Lvl 132 LAB 17043551(LOINC) 3.5-5.1 mEq/L Normal Potassium Lvl 4.9 LAB 21432162(LOINC) 98-107 mEq/L Low Chloride 89 LAB 56220021(LOINC) 24.0-30.0 mEq/L CO2 High 31.5 LAB 14720860(LOINC) 7-18 mg/dL BUN High 42 LAB 9630899(LOINC) 0.6-1.3 mg/dL Normal Creatinine 1.3 LAB 25959071(LOINC) 5.4-30.0 ratio High BUN/Creat Ratio 32.3 Performed By: #### [id number] #### ULISES [employer] [facility] [place] [address] ETHANOL Collected: 12/20/2017 Status: F Source: MU-ISM 8:20 PM [facility] REPOSITORY TYPE CODE TESTS RESULT OUT OF RANGE REFERENCE UNITS LAB [id number](LO 0-15 mg/dL INC) Normal Ethanol Lvl <5 Result Comment: SAMPLES WITH CONCENTRATIONS <15 MG/DL SHOULD BE INTERPRETED NEGATIVE. FOR MEDICAL USE ONLY Performed By: #### [id number] #### ULISES [employer] [address] [place] [address] EGFR Collected: 12/20/2017 Status: F Source: MU-ISM 8:20 PM [facility] REPOSITORY Order Comment: Order added by Discern Expert. TYPE CODE TESTS RESULT OUT OF RANGE REFERENCE UNITS LAB [id number](LO mL/min/1.73 INC) m2 Normal eGFR 57 LAB 07509402(LO mL/min/1.73 INC) m2 Normal eGFR AA >60 Performed By: #### [id number] #### ULISES [employer] [address] [place] [address] BOHB Collected: 12/20/2017 Status: F Source: MU-ISM 8:20 PM [facility] REPOSITORY TYPE CODE TESTS RESULT OUT OF RANGE REFERENCE UNITS LAB [id number](LO 0.02-0.27 mmol/L INC) High Beta HB 1.21 Qnt Performed By: #### [id number] #### [place] [address] GLUCOSE POC Collected: 12/20/2017 Status: F Source: MU-ISM 7:47 PM [facility] REPOSITORY TYPE CODE TESTS RESULT OUT OF REFERENCE UNITS RANGE LAB [id number](LO 70-99 mg/dL INC) High Glucose POC 338 Performed By: #### [id number] #### ULISES POC Subsection [address] [place], [place] [address] PROGRESS Observed: 11/19/2017 Status: COMPLETED Source: [place] 3:49 PM [facility] REPOSIT[facility] HNO ID: [id number] Author: Juliet Barnard) Balwinder Service: (none) Author Type: Magnetic Tape Winder Type: Progress Notes Filed: 11/19/2017 3:52 PM Note Text: Patient was going to get a doctor outside the [facility], but change his mind. Schedule appointment with Dr. Johnson. The patient has been identified by name and date of : YES I have scheduled the patient for an appointment on Visit 01-14-18 I have pended the following lab orders: PHMA Documentation 11/19/2017 Opts out of Population Health Yes Appointments Scheduled Scheduled PCP Appt DM2 with No KARELY Record Requested Opthy Appt No DM2 with No Urine Alb Lab Ordered DM2 with No DFE Record Requested A1C > 8.9 Lab Ordered Juliet Nieto MA PROGRESS Observed: 11/19/2017 Status: COMPLETED Source: [place] 2:08 PM [facility] REPOSITORY HNO ID: [id number] Author: Juliet Nieto Service: (none) Author Type: Magnetic Tape Winder Type: Progress Notes Filed: 11/19/2017 3:52 PM Note Text: The patient has been identified by name and date of : YES I have scheduled the patient for an appointment on Visit date not found. The patient will report to the lab prior to the visit. PHMA Documentation 11/19/2017 Opts out of Population Health Yes Juliet Nieto MA PROGRESS Observed: 11/19/2017 Status: COMPLETED Source: [place] 10:59 AM [facility] REPOSITORY HNO ID: [id number] Author: Juliet Nieto Service: (none) Author Type: Magnetic Tape Winder Type: Progress Notes Filed: 11/19/2017 3:52 PM Note Text: .I have attempted to contact this patient by phone to return their call, schedule an appointment, discuss lab results, etc. Left message to call back. PROGRESS Observed: 11/18/2017 Status: COMPLETED Source: [place] 10:59 AM [facility] REPOSITORY HNO ID: [id number] Author: Juliet Nieto Service: (none) Author Type: Magnetic Tape Winder Type: Progress Notes Filed: 11/19/2017 3:52 PM Note Text: I have attempted to contact this patient by phone to return their call, schedule an appointment, discuss lab results, etc. Left message to call back. PROGRESS Observed: 11/18/2017 Status: COMPLETED Source: [place] 10:34 AM [facility] REPOSITORY HNO ID: [id number] Author: Mitch Pemberton Service: (none) Author Type: Physician Type: Progress Notes Filed: 11/19/2017 3:52 PM Note Text: Labs ordered. Encounter Diagnosis ICD-10-CM 1. Need for hepatitis C screening test Z11.59 HEP C AB IA W/CONF SCRN 2. 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 Mixed hyperlipidemia E78.2 LIPID PANEL BASIC Mitch Pemberton MD PROGRESS Observed: 11/18/2017 Status: COMPLETED Source: [place] 9:06 AM [facility] REPOSITORY [facility] ID: [id number] Author: Juliet Barnard) Balwinder Service: (none) Author Type: Magnetic Tape Winder Type: Progress Notes Filed: 11/19/2017 3:52 PM Note Text: PHMA TEAMLET DOCUMENTATION Provider Action/FYI: appointment needs appointment Labs ordered No current labs from [facility] office. As 11-17-17 PSR Action/FYI: Teamlet has identified patient by name and date of . Team: Dr. Nilay Torrez ? Last Office Visit:10/29/2017 ? Next Office Visit: Visit date not found ? Last BP/Labs: Blood Pressure: Last 3 Encounter BP Readings: Date: BP: 06/20/2017 92/72 04/04/2017 144/92 03/03/2017 117/78 Lipids: Cholesterol, Total (mg/dL) Date Value 07/08/2016 176 11/07/2015 163 HDL Cholesterol (mg/dL) Date Value 07/08/2016 43 11/07/2015 77 LDL Cholesterol (mg/dL) Date Value 07/08/2016 84 11/07/2015 75 Triglyceride (mg/dL) Date Value 07/08/2016 246 11/07/2015 56 HGB A1C: Lab Results Component Value Date HBA1C 10.4 09/02/2016 HBA1C 14.1 07/08/2016 HBA1C 14.2 02/06/2016 HBA1C 11.4 11/07/2015 TSH: TSH (uU/mL) Date Value 07/06/2012 1.470 ) Care Gap: DM - Last HGBA1C is NOT under 9% Plan: ? Confirm PCP / Status ? Type of appointment needed: ? Consultation Appointments: ? Labs, HM and Immunization: Diabetic Eye Exam Diabetic Foot Exam CMP HgbA1c Albumin urine Lipids Hep C screening Juliet Nieto MA CNPTOUTREACH Observed: 11/18/2017 Status: COMPLETED Source: [place] 12:00 AM [facility] REPOSITORY Patient Outreach ([facility]) JAIME BAXTER ([id number]) 1960 M Date Time Provider Department 11/18/17 JULIET NIETO (JEFF) [facility] During your visit today, we recorded the following information about you: Juliet Nieto MA 11/19/2017 3:52 PM Signed PHMA TEAMLET DOCUMENTATION Provider Action/FYI: appointment needs appointment Labs ordered No current labs from [facility]. As 11-17-17 PSR Action/FYI: Teamlet has identified patient by name and date of . Team: Dr. Nilay Torrez ? Last Office Visit:10/29/2017 ? Next Office Visit: Visit date not found ? Last BP/Labs: Blood Pressure: Last 3 Encounter BP Readings: Date: BP: 06/20/2017 92/72 04/04/2017 144/92 03/03/2017 117/78 Lipids: Cholesterol, Total (mg/dL) Date Value 07/08/2016 176 11/07/2015 163 HDL Cholesterol (mg/dL) Date Value 07/08/2016 43 11/07/2015 77 LDL Cholesterol (mg/dL) Date Value 07/08/2016 84 11/07/2015 75 Triglyceride (mg/dL) Date Value 07/08/2016 246 11/07/2015 56 HGB A1C: Lab Results Component Value Date HBA1C 10.4 09/02/2016 HBA1C 14.1 07/08/2016 HBA1C 14.2 02/06/2016 HBA1C 11.4 11/07/2015 TSH: TSH (uU/mL) Date Value 07/06/2012 1.470 ) Care Gap: DM - Last HGBA1C is NOT under 9% Plan: ? Confirm PCP / Status ? Type of appointment needed: ? Consultation Appointments: ? Labs, HM and Immunization: Diabetic Eye Exam Diabetic Foot Exam CMP HgbA1c Albumin urine Lipids Hep C screening JEFF Stevens MD 11/19/2017 3:52 PM Signed Labs ordered. Encounter Diagnosis ICD-10-CM 1. Need for hepatitis C screening test Z11.59 HEP C AB IA W/CONF SCRN 2. 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 Mixed hyperlipidemia E78.2 LIPID PANEL BASIC MD Juliet Mckoy MA 11/19/2017 3:52 PM Signed I have attempted to contact this patient by phone to return their call, schedule an appointment, discuss lab results, etc. Left message to call back. Juliet Nieto MA 11/19/2017 3:52 PM Signed .I have attempted to contact this patient by phone to return their call, schedule an appointment, discuss lab results, etc. Left message to call back. Juliet Nieto MA 11/19/2017 3:52 PM Signed The patient has been identified by name and date of : YES I have scheduled the patient for an appointment on Visit date not found. The patient will report to the lab prior to the visit. PHMA Documentation 11/19/2017 Opts out of Population Health Yes JEFF Stevens MA 11/19/2017 3:52 PM Signed Patient was going to get a doctor outside the [facility], but change his mind. Schedule appointment with Dr. Johnson. The patient has been identified by name and date of : YES I have scheduled the patient for an appointment on Visit 01-14-18 I have pended the following lab orders: PHMA Documentation 11/19/2017 [facility]s out of [facility] Yes Appointments Scheduled Scheduled PCP Appt DM2 with No KARELY Record Requested Opthy Appt No DM2 with No Urine Alb Lab Ordered DM2 with No DFE Record Requested A1C ANDgt; 8.9 Lab Ordered Juliet Nieto MA Allergies As of Date: 11/18/2017 (No Known Allergies) Date Reviewed: 07/17/2017 Reviewed by: Ana Soto - Fully Assessed Reason for Visit: PHMA/Care Gap Outreach [[id number]] Primary Visit Diagnosis:Need for hepatitis C screening test [Z11.59] Other Visit Diagnoses: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, with long-term current use of insulin (HCC) [E11.3493, Z79.4] Mixed hyperlipidemia [E78.2] Order(s):HEP C AB IA W/CONF SCRN [[id number]] Order #: [id number] FUTURE HGB A1C [[id number]] Order #: [id number] FUTURE ALBUMIN/CREAT RATIO RND UR [SQUACR] Order #: [id number] FUTURE LIPID PANEL BASIC [SQLIPB] Order #: [id number] FUTURE COMP METABOLIC PANEL [SQCMP] Order #: [id number] FUTURE Prescriptions as of 11/18/2017 Sig: LISINOPRIL 40 MG TABLET take 1 tablet by mouth once d* INSULIN GLARGINE (U-100) 100 * Take 15 twice a day INSULIN ASPART U-100 100 UNI* Take 1-4 units before meals o* PREGABALIN 100 MG CAPSULE Take 1 capsule by mouth twice* PRIMIDONE 50 MG TABLET Take 50 mg by mouth twice benigno* FREESTYLE LANCETS 28 GAUGE 1 Each every 4 hours. DIVALPROEX 500 MG TABLET,PENG* Take by mouth , 1 tablet in a* HYDROCHLOROTHIAZIDE 12.5 MG C* Take 1 capsule by mouth once * BLOOD-GLUCOSE METER Use as directed. METFORMIN ER 500 MG TABLET,EX* Take 1 tablet by mouth twice * BENZONATATE 100 MG CAPSULE Take 1 capsule by mouth three* ATORVASTATIN 40 MG TABLET Take 1 tablet by mouth once d* LORAZEPAM 0.5 MG TABLET Take by mouth at bedtime as * CITALOPRAM 10 MG TABLET Take 1 tablet by mouth once d* BUSPIRONE 5 MG TABLET Take 1 tablet by mouth twice * PEN NEEDLE, DIABETIC 31 GAUGE* Use one needle per dose. four* LAMOTRIGINE 25 MG TABLET Take 1 tablet by mouth twice * OXCARBAZEPINE 600 MG TABLET Take 1 tablet by mouth twice * Problem List As Of Date 11/18/2017 Noted Resolved Seizure disorder (HCC) [G40.909] INVALID FOR* Uncontrolled type 1 diabetes mellitus (HCC) [E1*INVALID FOR*10/17/2016 More... Depression [F32.9] INVALID FOR* Hyperlipidemia [E78.5] INVALID FOR* Diabetic retinopathy associated with type 1 yoana*INVALID FOR*07/08/2016 More... Sleep apnea [G47.30] INVALID FOR* Type 1 diabetes mellitus (HCC) [E10.9] INVALID FOR*07/08/2016 Type 1 diabetes mellitus with proliferative ret*INVALID FOR*10/17/2016 Other vitreous opacities [H43.399] INVALID FOR* Senile cataracts of both eyes [H25.9] INVALID FOR* Background diabetic retinopathy(362.01) [E11.32*INVALID FOR*07/08/2016 Type II or unspecified type diabetes mellitus w*INVALID FOR*07/08/2016 Retinal edema [H35.81] INVALID FOR* Insulin dependent diabetes mellitus (HCC) [E11.*INVALID FOR*07/08/2016 Uncontrolled type 1 diabetes mellitus with prot* 07/08/2016 Diabetes mellitus type 1, uncontrolled, insulin* 07/08/2016 Uncontrolled type 1 diabetes mellitus with nonp* 07/08/2016 Hyperlipemia, mixed [E78.2] 07/08/2016 Type 1 diabetes mellitus with severe nonprolife*INVALID FOR* Uncontrolled type 1 diabetes mellitus with diab*INVALID FOR* Type 2 diabetes mellitus with both eyes affecte*INVALID FOR* Follow-up and Disposition History Recorded Encounter Status:Closed by JULIET NIETO on 11/19/17 BRAIN W/WO CONTRAST Observed: 10/28/2017 Status: F Source: MARISSA 9:15 AM [facility] RE[facility]ORY [facility] Imaging Services [address] [place], [place] [address] [address] Brain W/WO Contrast MR#: [id number] Acct: [id number] Name: JAIME BAXTER Rep #: [id number] : 1960 M 57 From: Vicky Curry PCP: Rodolfo Pemberton MD Status: REG CLI Study: Brain W/WO Contrast Date of Exam: 10/28/17 Exam# [id number] Ordering Dr: Tutu Groves MD STUDY: MRI BRAIN WITH AND WITHOUT CONTRAST (ATTENTION INTERNAL AUDITORY CANALS - I.A.C.'s) REASON FOR EXAM: Male, 57 years old. Hearing asymmetry.Left ear hearing loss and sound of crickets x 6 months. History of seizures. TECHNIQUE: Standardized multiplanar fat and water weighted pulse sequences were obtained. 7 ml of Gadavist contrast material was administered intravenously for the contrast portion of the examination. COMPARISON: None. FINDINGS: Normal bilateral temporal bones. Normal bilateral internal auditory canals. There is no demonstrated intracanalicular or cisternal vestibular schwannoma (acoustic neuroma). There is no enhancement of the bilateral VIIth or VIIIth cranial nerves. Normal bilateral cochlea, vestibules and semicircular canals. There is mild cerebral atrophy with widening of the extra- axial spaces and ventricular dilatation. Normal white matter tracts of the supratentorial brain. Normal bilateral basal ganglia. Normal thalami. Normal flow voids within the major intracranial circulation suggesting patency by spin echo criteria. Normal venous enhancement. There is no enhancing intra-axial or extra-axial abnormality. There is no extra-axial fluid accumulation. Normal sella turcica, pituitary gland, infundibular stalk, optic chiasm and hypothalamus. Normal tectal plate and pineal gland. There is a blush of enhancement involving the inferior josh with minimal increased FLAIR signal. Normal cerebellum. Normal basal cisterns. No demonstrated orbital abnormality, within the constraints of a routine brain study. Normal visualized paranasal sinuses. Normal calvarium and skull base. Normal visualized soft tissue structures. Normal visualized upper cervical spine. Enhancement of the josh. Differential considerations are cavernous angioma and low-grade neoplastic disease. Follow-up in 3 months can be obtained. MRI/Brain W/WO Contrast IMPRESSION: There is no demonstrated intracanalicular or cisternal vestibular schwannoma (acoustic neuroma). Enhancement of the josh. Differential considerations are cavernous angioma, demyelination and low-grade neoplastic disease. Follow-up in 3 months can be obtained. Electronically Signed: Vicky Curry MD at 15:53 EST Tel , Service support , CC: Aryan Groves MD; Rodolfo Pemberton MD Marine Erector: Signed ALLERGIES ALLERGIES DATE TYPE / CODE NAME / CODE REACTION SEVERITY SOURCE 09/10/2018 Drug No Known Unknown [place] Allergy/416 Allergies/S66023 [facility] 537982(SNOM 0388(RXNORM) Repository ED CT) Drug NO KNOWN [facility] Class/03104 ALLERGIES Repository 1003(SNOMED CT) Drug NO KNOWN [facility] Class/42676 ALLERGIES [place] 1003(SNOMED Repository CT) Drug/023272 No Known [place] 003(SNOMED Allergies [facility] CT) System Repository ENCOUNTERS ENCOUNTERS ADMIT/DISCHARGE ACCOUNT NUMBER ADMITTING ENCOUNTER LOCATION SOURCE CLASS 09/10/2018/09/10/20 [id number] Ambulatory BMSBuilding: [address] Repository 09/07/[id number] [facility] ding:LAB Repository 09/03/2018/09/07/20 [id number] Ambulatory [address] Repository 08/20/2018/08/21/20 [id number] Juan, Ambulatory [place] [facility] ding:[facility] Repository 08/20/2018 [id number] Ambulatory [address] [place] [address] Repository 08/10/2018/08/11/20 [id number] Ambulatory [address] Repository 08/06/2018/08/10/20 [id number] Ambulatory [address] Repository 07/07/2018/07/11/20 [id number] Ambulatory Building:[address] Three Repository 06/22/2018/06/23/20 [id number] Ambulatory [address] Repository 06/12/[id number] [facility] ding:LAB Repository 06/04/2018/06/11/20 [id number] Ambulatory [address] Repository 06/01/[id number] [facility] ding:LAB Repository 06/01/2018/06/01/20 [id number] Ambulatory BMSBuilding: Marissa 18 [facility] Repository 04/10/2018 [id number] Ambulatory Building:[facility] Repository 04/07/2018/04/07/20 [id number] Ambulatory Building:[address] Repository 03/03/[id number] [facility] ding:MRI Repository 02/19/2018/02/20/20 [id number] Ambulatory BMSBuilding: Marissa 18 [facility] Repository 02/10/2018 [id number] Ambulatory [facility] Repository 02/09/2018 [id number] Ambulatory [facility] Three [facility] 02/03/2018/02/04/20 [id number] Julee, Paty [place] [address] [address] Renee [facility] Repository 01/21/2018/01/22/20 [id number] Unknown [facility] [place] [address] [facility] 01/21/2018/01/22/[id number] Bernabe Ambulatory CBuilding: [address] [id number] 01/21/2018/01/22/20 [id number] Evelyn, [address] ding:[facility] EDRoom: Repository 01/16/2018 [id number] Ambulatory Building:[facility] Three [place]D Repository 01/01/2018/01/06/20 [id number] Ambulatory [address] Repository 12/30/[id number] [facility] ding:LAB Repository 12/30/2017/12/31/19 [id number] Ambulatory BMSBuilding: [place] 18 [facility] Repository 12/20/2017/12/23/19 [id number] Dinh, Inpatient [facility] 18 Anjel Bin [facility] ding:[facility] ERoom: Repository 0304Bed: 10/28/[id number] [facility] ding:MRI Repository PAYERS PAYERS ENCOUNTER GUARANTOR PAYER SUBSCRIBER SOURCE 09/10/2018 JAIME ALLEN Primary JAIME E COOKDOB: [place] 1/2 RT Insurance:MEDICARE [id number] PART A BPolicy Repository [address]Eky: 419) Number: [phone] () [id number] Date:2018-06-12 09/10/2018 Secondary NOT GIVENUNK [place] Insurance:SELF PAY Hospital INSURANCEPolicy Repository Number: Effective Date:2018-09-10 09/07/2018 JAIME ALLEN Primary JAIME E COOKDOB: [place] /2 RT Insurance:MEDICARE [id number] PART A BPolicy Repository [address]Exk: (419) Number: [phone] () [id number] Date:2018-09-07 09/07/2018 Secondary NOT GIVENUNK [place] Insurance:SELF PAY Hospital INSURANCEPolicy Repository Number: Effective Date:2018-09-07 08/20/2018 JAIME E Primary JAIME E COOKDOB: [facility] [id number] icy Number: Effective 09/23 RT System Repository 09/23 RT Date:2018-08-[address] [place] [address] [id number] 42216Bow: [phone]: (419) Name:CD:[phone] (HP) 746549TGCYKEGZIV, [place] ()Tel: [phone]) [phone]: (wp) [phone] 08/20/2018 Secondary JAIME BAXTERDOB: [place] Insurance:MedicaidPol [id number] [facility] icy Number: Effective 2 RT System Repository Date:2018-08-15 - [address] [place] [address] [id number] [phone]: (419) Name:CD:[id number] E [phone] ()Tel: (000) [place], [place] [phone] (WP) [id number]: 08/20/2018 JAIME BAXTERDOB: Primary JAIME KASHMIRDOB: [place] Insurance[facility] [id number] Hospitals 09/23 RT icy Number: 09/23 RT Repository [address] [place] [address] [id number] [address] [place] [address] [phone]: (419) Date:Plan Name:[place] [address]Tel: (HP) A [phone] (HP) 08/20/2018 Secondary JAIME CURRANB: [place] Insurance[facility] [id number] Hospitals icy Number: 09/23 RT Repository [id number] [address] [place] [address] Date:Plan Name:[place] [address]Tel: [phone] () 08/20/2018 Tertiary JAIME BAXTERDOB: [place] Insurance[facility] [id number] [facility] icy Number: 09/23 RT Repository [id number] [address] [place] [address] Date:Plan 332[address]Tqs: (419) Name:Health [phone] (HP) [place]Port [place], [place] [address]TK: 07/07/2018 JAIME CURRANB: Primary JAIME CURRANB: [facility] Insurance:MEDICAREPol [id number] Repository 1/[address] icy Number: [address] RT RT [address] [place] [address] [id number] [address] [place] [address] [phone]: (999) Date:1892-69-10TLP 71452Lvl: (HP) J15 PART A CLAIMSPO [phone] (HP) [address] [address]YMLDCRPAHJEREMY [address]FE: 06/12/2018 JAIME ALLEN Primary JAIME BAXTERDOB: [place] 1/2 RT Insurance:MEDICARE [id number] PART A BPolicy Repository [address]Ptn: (419) Number: [phone] () [id number] Date:2018-06-12 06/12/2018 Secondary NOT GIVENUNK [place] Insurance:SELF PAY Hospital INSURANCEPolicy Repository Number: Effective Date:2018-06-12 06/01/2018 JAIME E COOKPO Primary JAIME E COOKDOB: [place] BOX Insurance:MEDICARE [id number] PART [place]Policy [place]ository [place] [address]Pde: Number: [id number] (HP) Date:2018-06-01 06/01/2018 Secondary NOT GIVENUNK [place] Insurance:SELF PAY Hospital INSURANCEPolicy Repository Number: Effective Date:2018-06-01 06/01/2018 JAIME Landy BAXTERPO Primary JAIME E COOKDOB: [place] BOX Insurance:MEDICARE [id number], PART A BPolicy Repository [place] [address]Yem: Number: [id number] (HP) Date:2018-05-19 06/01/2018 Secondary NOT GIVENUNK [place] Insurance:SELF PAY Hospital INSURANCEPolicy Repository Number: Effective Date:2018-06-01 04/10/2018 JAIME KASHMIRDOB: Primary JAIME BAXTERDOB: [facility] Insurance[facility] [id number] Repository 1/[address] icy Number: 1/[address] RT RT [address] [place] [address] [id number] [address] [place] [address] [phone]: (999) Date:6900-93-55AEH 817[address]Xhy: (HP) J15 PART A CLAIMSPO [phone] (HP) [address] [address]ICGTSJG [place] [address]VH: 04/07/2018 JAIME COOKDOB: Primary JAIME COOKDOB: [facility] Insurance:MEDICAREPol [id number] Repository 1/[address] icy Number: [address] RT RT [address] [place] [address] [id number] [address] [place] [address] [phone]: (999) Date:7772-50-53HVW 00336Oiw: (HP) J15 PART A CLAIMSPO [phone] (HP) [address] [address]TWYCJXIBF, [place] [address]LE: 03/03/2018 JAIME E COOKPO Primary JAIME E COOKDOB: [place] BOX Insurance:MEDICARE [id number] BPolicy [place]ository [place] [address]Kry: Number: [id number] (HP) Date:2017-12-15 03/03/2018 Secondary NOT GIVENUNK [place] Insurance:SELF PAY Hospital INSURANCEPolicy Repository Number: Effective Date:2017-12-15 02/19/2018 JAIME E COOKPO Primary JAIME E COOKDOB: [place] BOX Insurance:MEDICARE [id number] A BPolicy [place]ository [place] [address]Jtn: Number: [id number] (HP) Date:2018-02-12 02/19/2018 Secondary NOT GIVENUNK [place] Insurance:SELF PAY Hospital INSURANCEPolicy Repository Number: Effective Date:2018-02-19 02/10/2018 JAIME E Primary JAIME E COOKDOB: University COOKDOB: Insurance:MedicarePol [id number] Hospitals icy Number: 09/[address] Repository [address] [id number] ROUTE , ROUTE , Date:Plan Name:[place] [address]Bbw: [place] [id number]: A (HP) (HP) 02/10/2018 Secondary JAIME E COOKDOB: University Insurance:MedicarePol [id number] Hospitals icy Number: [address] Repository [id number] [address], Date:Plan [facility] [place] [address]Ana: B (HP) 02/10/2018 Tertiary JAIME CURRANB: University Insurance:MedicaidPol [id number] Hospitals icy Number: 1/2 [address] MA[address] Repository [id number] [address], Date:Plan [place] [address]Mga: Name:[facility] [address], [place] (HP) [address]PU: 02/09/2018 JAIME CURRANB: Primary JAIME CURRANB: [facility] Insurance:MEDICAREPol [id number] Repository 1/2 W [facility] icy Number: [address] RT [address] [place] [address] [id number] [address] [place] [address] [phone]: (999) Date:4582-35-65IUX 33169Odt: (HP) J15 PART A CLAIMSPO [phone] (HP) [address] [place] [address]SG: 02/03/2018 Primary NOT [id number] Insurance[facility] Number: [facility] [id number] [address]Yda: (419) Repository Date:Plan () Name:[address] [address]BR: 01/21/2018 JAIME CURRANB: Primary JAIME CURRANB: [facility]ICARE [id number] System Repository 1/2 [address] MA[address] PART APolicy Number: 09/23 [address] RT RT [address] [place] [address] [id number] [address] [place] [address] [phone]: (419) Date:2004-09-22 512[address]Miu: (HP) [phone] (HP) 01/21/2018 Secondary JAIME CURRANB: [facility] Insurance:MEDICARE [id number] System Repository PART APolicy Number: 09/23 W MA[address] RT [id number] [address] [place] [address] Date:2004-09-22 56543Buh: (HP) 01/21/2018 JAIME Bill Primary JAIME CURRANB: [place] COOKDOB: [facility] [id number] Hospitals icy Number: 09/[address] Repository 09/[address] [id number] ROUTE [facility], ROUTE [facility], Date:Plan Name:[facility] [address]Owx: [place] [address]Myz: A (HP) (HP) 01/21/2018 Secondary JAIME CURRANB: [place] Insurance[facility] [id number] [facility] icy Number: 09/23 W MAIN Repository [id number] ROUTE [facility], Date:Plan Name:[facility] [address]Iwj: B (HP) 01/21/2018 Tertiary JAIME CURRANB: [place] Insurance:MedicaidPol [id number] [facility] icy Number: 09/23 W MAIN Repository [id number] ROUTE [facility], Date:Plan [place] [address]Ajo: Name:[facility] [address], [place] (HP) [address]VZ: 01/21/2018 JAIME Bill Primary JAIME CURRANB: [place] MAGDYB: Insurance:MedicarePol [id number] [facility] icy Number: Effective 09/[address] System Repository 09/[address] Date:2018-01-21 - RT [address], [place] RT [address], [place] [id number] [address]Oqb: [phone]: (901) Name:CD:[phone] (HP) [id number] [place], [place] (HP)Tel: [phone]: (wp) [phone] 01/16/2018 JAIME COOKDOB: Primary JAIME COOKDOB: [facility] Insurance:MEDICAREPol [id number] Repository 09/23 [facility] icy Number: 09/23 [place] [id number] [place], [place] [address]Pbl: (999) Date:5126-62-45SKQ [address]22[address]Vry: (HP) J15 PART A CLAIMSPO [phone] (HP) [address] [address]IGFTBQULN, [place] [address]VN: 12/30/2017 JAIME E COOKPO Primary JAIME E COOKDOB: [place] BOX Insurance:MEDICARE [id number] [place]Policy [place]ository [place] [address]Tpx: Number: [id number] () Date:2017-12-30 12/30/2017 Secondary NOT GIVENUNK [place] Insurance:SELF PAY Hospital INSURANCEPolicy Repository Number: Effective Date:2017-12-30 12/30/2017 JAIME E COOKPO Primary JAIME E COOKDOB: [place] BOX Insurance:MEDICARE [id number], [facility] A [place]Policy [place]ository [place] [address]Axd: Number: [id number] () Date:2017-10-07 12/30/2017 Secondary NOT GIVENUNK [place] Insurance:SELF PAY Hospital INSURANCEPolicy Repository Number: Effective Date:2017-12-30 12/20/2017 JAIME E Primary JAIME E COOKDOB: [place] COOKDOB: Insurance:MedicarePol [id number] [facility] icy Number: Effective 09/23 [facility] System Repository 09/23 [facility] Date:2017-12-20 - RT [address] [address] [place], [place] [id number] [address]Zgm: [phone]: (502) Name:CD:[id number] [phone] (HP) 6545[address]MZXDBUKFRE, [place] (HP)Tel: [phone]: (wp) [phone] 10/28/2017 JAIME REYNA Primary JAIME CURARNB: [place] BOX Insurance:MEDICARE [id number], PART A BPolicy [place]ository [place] [address]Jvj: Number: [id number] () Date:2017-10-20 10/28/2017 Secondary NOT GIVENUNK [place] Insurance:SELF PAY Hospital INSURANCEPolicy Repository Number: Effective Date:2017-10-20
== END ==
PROVIDERS: Referring Provider Nurse Practitioner; Visit Provider Nurse Practitioner
DX: E10.49 Type 1 diabetes mellitus with other diabetic neurological complication (principal); E10.65 Type 1 diabetes mellitus with hyperglycemia
CPT/HCPCS: 36415; 80061

== ENCOUNTER → 2018-12-02 10:49 | Outpatient (CLI) | payer MEDICARE, SELFPAY ==
[2018-12-02 10:07] VITALS: BMI 25.5
[2018-12-02 11:37] LABS: Hemoglobin A1c 12.7 % (4.2-6.3)
[2018-12-02 11:51] LABS: ALB/GLOB Ratio 1.6 RATIO (0.9-2.4); AST(SGOT) 14 U/L (15-37); Alanine Aminotransfer ALT/SGPT 25 U/L (16-61); Albumin, Serum 4.1 g/dL (3.2-5.0); Alkaline Phosphatase 90 U/L (45-117); Anion Gap 6 (5-15); BUN 17 mg/dL (7-18); BUN/Creat Ratio 16.2 RATIO (10-20); Calcium,Total 9.1 mg/dL (8.5-10.1); Chloride 97 mmol/L (98-107); Creatinine, Serum 1.05 mg/dL (0.70-1.30); EST Glomerular Filtration Rate 77 mL/min (>60); Est Glom Filt Rate - Afr Amer 93 mL/min (>60); Globulin 2.5 g/dL (2.2-4.2); Glucose 426 mg/dL (74-106); Potassium 4.4 mmol/L (3.5-5.1); Protein, Total 6.6 g/dL (6.4-8.2); Sodium Level 135 mmol/L (136-145)
== END ==
PROVIDERS: Referring Provider Nurse Practitioner; Visit Provider Nurse Practitioner
DX: E10.8 Type 1 diabetes mellitus with unspecified complications (principal); E10.65 Type 1 diabetes mellitus with hyperglycemia
CPT/HCPCS: 36415; 80053; 83036

== ENCOUNTER → 2019-02-24 | Outpatient (CLI) | payer MEDICARE, SELFPAY ==
[2018-12-02 10:07] VITALS: BMI 25.5
[2019-02-24 14:50] LABS: Absolute Lymphocyte Count 2.73 X10^3/ul (0.83-4.51); Basophil# 0.01 X10^3/uL; Basophil% 0.2 % (0-1); Eosinophils% 1.9 % (0-5); Hematocrit 40.3 % (40-54); Hemoglobin 13.9 g/dl (13.0-16.5); Lymphocyte # 2.73 X10^3/ul (4.0); Lymphocyte % 51.3 % (19-41); Mean Corp Hgb Conc 34.5 g/gl (32-36); Mean Corpuscular Hgb 30.9 pg (27.0-32.0); Mean Corpuscular Volume 89.6 fL (80-94); Mean Platelet Vol. 10.2 fl (6.2-12.0); Monocyte% 9.4 % (0-10); Neutrophil # 1.96 X10^3/uL (2.7-7.7); Neutrophil % 36.8 % (47-70); Platelet Count 167 K/mm3 (150-450); RBC Distribution Width CV 12.9 % (11.6-14.6); White Blood Count 5.3 K/mm3 (4.4-11.0)
[2019-02-24 14:55] LABS: POSITIVE COUNT NO; POSITIVE DIFFERENTIAL NO; POSITIVE MORPHOLOGY NO
[2019-02-24 15:25] LABS: Valproic Acid (Depakene) Level 75 ug/mL (50-100)
[2019-02-24 15:37] LABS: ALB/GLOB Ratio 1.3 RATIO (0.9-2.4); AST(SGOT) 20 U/L (15-37); Alanine Aminotransfer ALT/SGPT 27 U/L (16-61); Albumin, Serum 3.7 g/dL (3.2-5.0); Alkaline Phosphatase 98 U/L (45-117); Anion Gap 5 (5-15); BUN 20 mg/dL (7-18); BUN/Creat Ratio 17.7 RATIO (10-20); Bilirubin, Direct 0.09 mg/dL (0.00-0.30); Calcium,Total 8.9 mg/dL (8.5-10.1); Chloride 101 mmol/L (98-107); Creatinine, Serum 1.13 mg/dL (0.70-1.30); EST Glomerular Filtration Rate 71 mL/min (>60); Est Glom Filt Rate - Afr Amer 86 mL/min (>60); Globulin 2.9 g/dL (2.2-4.2); Glucose 233 mg/dL (74-106); Potassium 5.4 mmol/L (3.5-5.1); Protein, Total 6.6 g/dL (6.4-8.2); Sodium Level 137 mmol/L (136-145)
[2019-02-28 12:14] LABS: Primidone, Serum 1.3 ug/mL (5.0-12.0)
== END | disposition home or self-care (01) ==
PROVIDERS: Referring Provider Nurse Practitioner Family; Visit Provider Nurse Practitioner Family
DX: R25.1 Tremor, unspecified (principal); R56.9 Unspecified convulsions
CPT/HCPCS: 36415; 80053; 80164; 80184; 80188; 82248; 82746; 85025

== ENCOUNTER → 2019-03-22 20:55 | Outpatient (CLI) | payer MEDICARE, SELFPAY ==
[2018-12-02 10:07] VITALS: BMI 25.5
== END ==
PROVIDERS: Referring Provider Nurse Practitioner Family; Visit Provider Nurse Practitioner Family
DX: G47.33 Obstructive sleep apnea (adult) (pediatric) (principal)
CPT/HCPCS: 95811

== ENCOUNTER → 2019-04-27 09:38 | Outpatient (CLI) | payer MEDICARE, SELFPAY ==
[2018-12-02 10:07] VITALS: BMI 25.5
[2019-04-27 12:29] LABS: Hemoglobin A1c 10.8 % (4.2-6.3)
[2019-04-27 12:58] LABS: ALB/GLOB Ratio 1.3 RATIO (0.9-2.4); AST(SGOT) 30 U/L (15-37); Alanine Aminotransfer ALT/SGPT 49 U/L (16-61); Albumin, Serum 3.8 g/dL (3.2-5.0); Alkaline Phosphatase 146 U/L (45-117); Anion Gap 8 (5-15); BUN 28 mg/dL (7-18); BUN/Creat Ratio 20.4 RATIO (10-20); Calcium,Total 9.7 mg/dL (8.5-10.1); Chloride 95 mmol/L (98-107); Cholesterol 210 mg/dL (200); Creatinine, Serum 1.37 mg/dL (0.70-1.30); EST Glomerular Filtration Rate 57 mL/min (>60); Est Glom Filt Rate - Afr Amer 68 mL/min (>60); Glucose 481 mg/dL (74-106); High Density Lipoprotein 39 mg/dL; Potassium 5.4 mmol/L (3.5-5.1); Protein, Total 6.8 g/dL (6.4-8.2); Sodium Level 135 mmol/L (136-145); Triglycerides 480 mg/dL
== END ==
PROVIDERS: Nurse Practitioner Family; Referring Provider Internal Medicine Endocrinology, Diabetes & Metabolism; Visit Provider Internal Medicine Endocrinology, Diabetes & Metabolism
DX: E10.42 Type 1 diabetes mellitus with diabetic polyneuropathy (principal)
CPT/HCPCS: 36415; 80053; 80061; 83036

== ENCOUNTER → 2019-06-09 11:54 | Outpatient (CLI) | payer MEDICARE, SELFPAY ==
[2018-12-02 10:07] VITALS: BMI 25.5
[2019-06-09 12:33] LABS: Erythrocyte Sedimentation Rate < 1 mm/hr (0-20)
[2019-06-09 12:42] LABS: Absolute Lymphocyte Count 2.44 X10^3/uL (0.83-4.51); Absolute Neutrophil Count 2.1 X10^3/uL (2.0-7.7); Basophil# 0.03 X10^3/uL; Basophil% 0.6 % (0-1); Eosinophil# 0.04 X10^3/uL; Eosinophils% 0.8 % (0-5); Hematocrit 41.2 % (40-54); Lymphocyte # 2.44 X10^3/ul (4.0); Lymphocyte % 49.1 % (19-41); Mean Corpuscular Hgb 30.4 pg (27.0-32.0); Mean Corpuscular Volume 89.6 fL (80-94); Mean Platelet Vol. 10.4 fl (6.2-12.0); Monocyte# 0.36 X10^3/uL; Monocyte% 7.2 % (0-10); NRBC Flagged by Analyzer 0 % (0-5); Neutrophil # 2.08 X10^3/uL (2.7-7.7); Neutrophil % 41.9 % (47-70); Platelet Count 143 K/mm3 (150-450); RBC Distribution Width SD 39.2 fl (35.1-43.9)
[2019-06-09 13:11] LABS: Hemoglobin A1c 12.8 % (4.2-6.3); Vitamin B12 1677 pg/mL (211-911)
[2019-06-09 13:27] LABS: ALB/GLOB Ratio 1.4 RATIO (0.9-2.4); AST(SGOT) 11 U/L (15-37); Alanine Aminotransfer ALT/SGPT 23 U/L (16-61); Alkaline Phosphatase 133 U/L (45-117); Anion Gap 3 (5-15); BUN 20 mg/dL (7-18); BUN/Creat Ratio 14.6 RATIO (10-20); Bilirubin, Direct 0.09 mg/dL (0.00-0.30); CRP < 2.90 mg/L (0.0-3.0); Calcium,Total 9.1 mg/dL (8.5-10.1); Chloride 95 mmol/L (98-107); Creatinine, Serum 1.37 mg/dL (0.70-1.30); EST Glomerular Filtration Rate 57 mL/min (>60); Est Glom Filt Rate - Afr Amer 68 mL/min (>60); GGTP 83 U/L (15-85); Globulin 2.9 g/dL (2.2-4.2); Glucose 449 mg/dL (74-106); Magnesium 2.3 mg/dL (1.6-2.6); Protein, Total 6.9 g/dL (6.4-8.2); Sodium Level 131 mmol/L (136-145); Thyroid Stim Hormone (TSH) 1.93 uIU/mL (0.358-3.74)
[2019-06-10 16:07] LABS: SJOGREN'S Anti-SS-A test < 0.2 AI (0.0-0.9); SJOGREN'S Anti-SS-B test < 0.2 AI (0.0-0.9)
[2019-06-10 17:16] LABS: ANTINUCLEAR ANTIBODIES DIRECT Negative (Negative)
[2019-06-12 03:06] LABS: Cytoplasmic Ab (C-ANCA) <1:20 titer (Neg:<1:20); PROEL- A/G Ratio 1.7 (0.7-1.7); PROEL- Alpha-1 Globulin 0.2 g/dL (0.0-0.4); PROEL- Alpha-2 Globulin 0.6 g/dL (0.4-1.0); PROEL- Beta Globulin 0.9 g/dL (0.7-1.3); PROEL- Gamma Globulin 0.8 g/dL (0.4-1.8); PROEL- Globulin, Total 2.4 g/dL (2.2-3.9); PROEL- TOTAL PROTEIN 6.4 g/dL (6.0-8.5); PROELU- Albumin, Urine 83.4 % (.); PROELU- Alpha-1-Globulin,Ur 1.7 % (.); PROELU- Alpha-2-Globulin,Ur 2.9 % (.); PROELU- Beta Globulin, Ur 9.2 % (.); PROELU- Gamma Globulin, Ur 2.8 % (.); Total Protein, Ur 15.9 mg/dL (Not Estab.)
[2019-06-12 10:16] LABS: Arsenic 7245 3 ug/L (2-23); Perinuclear Ab (P-ANCA) <1:20 titer (Neg:<1:20)
== END ==
PROVIDERS: Referring Provider Nurse Practitioner Family; Visit Provider Nurse Practitioner Family
DX: E11.9 Type 2 diabetes mellitus without complications (principal); G62.9 Polyneuropathy, unspecified; R74.8 Abnormal levels of other serum enzymes; I10 Essential (primary) hypertension; Z79.899 Other long term (current) drug therapy
CPT/HCPCS: 36415; 80053; 82175; 82248; 82607; 82977; 83036; 83655; 83735; 83825; 84165; 84166; 84443; 85025; 85652; 86038; 86140; 86235; 86256

== ENCOUNTER → 2019-06-18 07:02 | Outpatient (CLI) | payer MEDICARE, SELFPAY ==
[2018-12-02 10:07] VITALS: BMI 25.5
--- NOTE | 2019-06-18 07:45 | MRI_ITS ---
STUDY: MRI LUMBAR SPINE WITHOUT CONTRAST REASON FOR EXAM: Male, 59 years old. Low back pain and bilateral leg pain. TECHNIQUE: Standardized fat and water weighted pulse sequences were obtained in the sagittal and axial planes. COMPARISON: None FINDINGS: T12-L1: (Sagittal only). Normal endplates. Normal disc height, hydration and morphology. No ventral extradural defect. Normal central canal and bilateral intervertebral neural foramina. Normal lumbar lordosis. There is no substantial scoliosis. Normal conus medullaris that terminates at the T12-L1 disc space level. L1-2: Normal endplates. Normal disc height, hydration and morphology. Normal bilateral facet joints. Normal central canal and bilateral lateral recesses. Normal bilateral intervertebral neural foramina. L2-3: Normal endplates. Normal disc height, hydration and morphology. Normal bilateral facet joints. Normal central canal and bilateral lateral recesses. Normal bilateral intervertebral neural foramina. L3-4: Normal endplates. Normal disc height, hydration and morphology. Normal bilateral facet joints. Normal central canal and bilateral lateral recesses. Normal bilateral intervertebral neural foramina. L4-5: Normal endplates. Mild disc space height narrowing with mild loss of disc hydration. Small posterior bulging disc. Mild central canal stenosis with an AP canal diameter of 9 mm. Normal bilateral lateral recesses. Mild left degenerative facet arthropathy. Normal right facet joint. Normal bilateral intervertebral neural foramina. L5-S1: Normal endplates. Normal disc height, hydration and morphology. Normal bilateral facet joints. Normal central canal and bilateral lateral recesses. Normal bilateral intervertebral neural foramina. Normal visualized sacral ala. Normal visualized paraspinous soft tissue structures. MRI/Spine Lumbar (Routine) IMPRESSION: 1. Mild L4-L5 disc space height narrowing with small posterior bulging disc, mild central canal stenosis with an AP canal diameter of 9 mm and mild left degenerative facet arthropathy. 2. No MRI evidence of lumbar extruded disc fragment. 3. Normal remainder of the lumbar spine. Electronically Signed: Seven Lewis MD at 9:15 EDT , Service support ,
== END ==
PROVIDERS: Referring Provider Nurse Practitioner Family; Visit Provider Nurse Practitioner Family
DX: M54.10 Radiculopathy, site unspecified (principal)
CPT/HCPCS: 72148

== ENCOUNTER → 2020-03-13 15:10 | Outpatient (CLI) | payer MEDICARE, SELFPAY ==
[2018-12-02 10:07] VITALS: BMI 25.5
== END ==
PROVIDERS: Referring Provider Otolaryngology; Visit Provider Otolaryngology
DX: H92.12 Otorrhea, left ear (principal)
CPT/HCPCS: 87070; 87075; 87077; 87186; 87205